=== PATIENT | male | born 1950 | race Caucasian/White ===

== ENCOUNTER 2021-03-22 08:38 | Outpatient (CLI) | payer OTHER, SELFPAY ==
--- NOTE | ~2021-03-22 | XR_ITS ---
EXAMINATION: XR hand RT min 3V EXAM DATE: 03/22/2021 08:54 INDICATION: 1st metacarpal/phalangeal pain, no known recent injury. TECHNIQUE: Right hand frontal, lateral and oblique projections obtained and reviewed. There is no pr ior study for comparison. FINDINGS: Right metacarpal bones are unremarkable. There is mild polyarticular primary osteoarthriti s, including the 1st MCP joint. There are no acute fractures or dislocations identified. There is no subcutaneous gas. The soft tissue is unremarkable. There are no radiopaque foreign bodies. IMPRESSION: Right hand mild polyarticular osteoarthritis. Reviewed, dictated and finalized at location A.
== END 2021-03-22 08:39 | disposition home or self-care (01) ==
LOC: ANHIMG 08:43
PROVIDERS: PCP Internal Medicine; Visit Provider Internal Medicine
DX: M79.89 Other specified soft tissue disorders (principal); M19.041 Primary osteoarthritis, right hand
CPT/HCPCS: 73130

== ENCOUNTER 2022-02-27 13:41 | Outpatient (CLI) | payer MEDICARE, SELFPAY ==
--- NOTE | 2022-02-27 15:08 | ECG_ITS ---
Measurements Intervals [place] Rate: 79 P: 4 UT: 170 QRS: -3 QRSD: 95 T: 24 QT: 363 QTc: 417 Interpretive Statements SINUS RHYTHM NORMAL ELECTROCARDIOGRAM NO PREVIOUS ECG AVAILABLE FOR COMPARISON Electronically Signed On 02-28-2022 11:55:55 CDT by Dinesh Duarte M.D.
[2022-02-27 15:50] LABS: Basophils Percent Auto 0.3 % (0.2-1.2); Eosinophils Absolute Auto 0.1 K/mm3 (0-0.3); Eosinophils Percent Auto 1.2 % (0-4.4); Hematocrit 42.9 % (42.0-52.0); Hemoglobin 14.5 g/dL (14.0-18.0); Immature Granulocyte Absolute 0.03 K/mm3 (0.00-0.031); Immature Granulocyte Percent A 0.3 % (0-0.5); Lymphocytes Absolute Auto 2.33 K/mm3 (0.9-3.2); Lymphocytes Percent Auto 24.9 % (18.3-44.2); Mean Corpuscular HGB Conc 33.8 g/dl (32-36); Mean Corpuscular Hemoglobin 32.2 pg (26-34); Mean Corpuscular Volume 95.1 fl (80-100); Monocytes Percent Auto 11.1 % (2.6-8.5); Neutrophils Absolute Auto 5.8 K/mm3 (1.3-6.7); Neutrophils Percent Auto 62.2 % (45.5-73.1); Platelet Count Result 207 k/mm3 (150-375); Red Blood Count 4.51 M/mm3 (4.6-6.20); White Blood Count 9.3 K/mm3 (4.5-10.0)
[2022-02-27 15:59] LABS: INR 1.1; Prothrombin Time 13.4 Seconds (11.1-14.7)
[2022-02-27 16:00] LABS: Add Urine Microscopic? NO; Appearance Urine Clear (Clear); Bilirubin Urine Negative (Negative); Blood Urine Negative (Negative); Color Urine Yellow (Yellow); Glucose Urine UA Negative (Negative); Ketones Urine Negative (Negative); Leukocyte Esterase Ur Negative LEU/UL (Negative); Nitrate Urine Negative (Negative); Partial Thromboplastin Time 35.8 SECONDS (22.3-36.8); Protein Urine Negative (Negative); Urobilinogen Urine 0.2 mg/dL (<2.0)
[2022-02-27 16:06] LABS: Albumin Level 4.7 g/dL (3.5-5.1); Anion Gap 14 mmol/L (8-16); Blood Urea Nitrogen 18 mg/dL (9-20); Calcium 9.5 mg/dL (8.4-10.2); Carbon Dioxide 24 mmol/L (22-30); Chloride 100 mmol/L (98-107); Estimated Glomerular Filt Rate > 60; Glucose 125 mg/dL (65-110); Potassium 3.8 mmol/L (3.4-5.0); Sodium 138 mmol/L (137-145)
[2022-02-27 16:08] LABS: Hemoglobin A1C 5.7 % (<5.7)
[2022-02-27 17:14] LABS: Urine Cotinine NEGATIVE
== END 2022-02-27 13:42 | disposition home or self-care (01) ==
LOC: ANHSURGERY 13:47
PROVIDERS: PCP Internal Medicine; Visit Provider Orthopaedic Surgery
DX: Z01.818 Encounter for other preprocedural examination (principal); M17.11 Unilateral primary osteoarthritis, right knee
CPT/HCPCS: 80048; 80307; 81003; 82040; 83036; 85025; 85610; 85730; 86850; 86900; 86901; 87081; 93005

== ENCOUNTER 2022-03-12 15:55 | Observation (INO) | payer MEDICARE, SELFPAY ==
[2022-02-27 13:53] VITALS: BMI 27.4
--- NOTE | 2022-02-27 14:29 | PC.NURSE ---
Addendum entered by Kizzy Kim RN 02/27/22 14:40: TAKE HYDRALAZINE MORNING OF SURGERY Original Note: Report to the Outpatient Waiting Room, entrance under the green pavilion located off [facility], at time ___1000____ on date _03/11/22 . OR Time: __1200 . - You and your visitor will be asked to self-screen and do not enter if you have any COVID symptoms. - Only one visitor and NO children visitors are allowed at this time. - The patient visitor is requested to leave or wait in car when not with patient due to restrictions. - A mask is required within the hospital. Patients may have clear liquids (water, carbonated beverages, clear teas, apple juice) until 3 hours prior to surgery with a maximum of 20 ounces. - No food from midnight until time of surgery - Infants may have breast milk until 4 hours before surgery, formula 6 hours prior to surgery. - Children will be allowed to drink immediately following surgery. If applicable, please bring a bottle or sippy cup to assist with drinking. Juice, water, soda, and popsicles are readily available. For infants on formula, please bring formula the day of surgery. Pacifiers are allowed. Take the following medications with a SIP of water the morning of surgery: LORAZEPAM Medications to discontinue per physician IBUPROFEN PER DR DANG Date to take last dose Please no make-up, nail setswana, hairspray, perfume, deodorant, or body powder the day of surgery. No jewelry (including any body piercings) or valuables the day of surgery, leave them at home. Please take a shower or bath the night before, or the morning of, surgery with an antibacterial soap. Wear comfortable, loose fitting clothing. Children are encouraged to wear pajamas. - Jewelry must be removed prior to entering the operating room. Rings and piercings that are not removed may be cut off. - The hospital will not accept responsibility for valuables. - Please leave all valuables, including medications, at home the day of surgery. If you are going home after surgery, a licensed school bus driver/mechanic must drive you home. - NO public transportation without another adult. - We recommend that an adult stay with you for 24 hours following discharge. - We also recommend that you do not drive, make important decision, drink alcoholic beverages, or take any drugs that were not prescribed by your health care provider for at least 24 hours after your discharge time. For Pediatric surgeries, we recommend two adults accompany the child home (only one inside the building at this time). Follow any additional instructions given to you from your surgeon. If you or anyone in your household have experienced Covid symptoms in the past week, please notify your surgeon or the nurse liaison at the phone number below for possible testing. VERBAL AND WRITTEN instructions given to PATIENT AND SPOUSE NUVIAE and asked if any additional questions and then verbalized understanding. Patient advised to call surgeon office or pre surgery nurse liaison [phone] if any additional questions.
[2022-02-27 14:57] VITALS: BP 124/82; PULSE 84; RESP 18; TEMP 37.1; O2SAT 99
--- NOTE | 2022-03-10 13:24 | WPDANESEPPF ---
Anes - Initial Pre Proc Eval Procedure: Operation Date: 03/11/22 12:00 Proposed Procedures p Right Total Knee Arthroplasty - Ronine Cassidy MD Date/Time: 03/10/22 13:24 Surgeon: Ronnie Cassidy MD Pre Op Diagnosis: Rt Knee DJD Patient Data Age: 71 Gender: M Height: 1.85 m Weight: 94.3 kg Last Vital Signs Temp 37.1 C 02/27/22 14:57 Pulse 84 02/27/22 14:57 Resp 18 02/27/22 14:57 BP 124/82 02/27/22 14:57 Pulse Ox 99 02/27/22 14:57 O2 Del Method Room Air 02/27/22 14:57 Allergies Allergy/AdvReac Type Severity Reaction Status Date / Time No Known Allergies Allergy Verified 03/11/22 10:07 Home Medications Medication Instructions Recorded Confirmed Type ibuprofen 200 mg tablet (Advil) 800 mg PO DAILY PRN Pain 02/24/20 03/11/22 History sildenafil 100 mg tablet See Rx Instructions .Route 10/22/21 02/27/22 Rx .COMPLEX #18 tabs omeprazole 40 mg capsule,delayed 40 mg PO DAILY #90 caps 11/22/21 03/11/22 Rx release atorvastatin 20 mg tablet See Rx Instructions .Route 12/20/21 03/11/22 Rx .COMPLEX #90 tabs valsartan 320 1 tablet PO DAILY #90 tabs 12/20/21 03/11/22 Rx mg-hydrochlorothiazide 12.5 mg tablet (Diovan HCT) tamsulosin 0.4 mg capsule See Rx Instructions .Route 01/06/22 03/11/22 Rx .COMPLEX #90 caps hydralazine 50 mg tablet 50 mg PO .COMPLEX #15 tabs 01/20/22 03/11/22 Rx lorazepam 1 mg tablet 1 mg PO BID PRN anxiety #180 tabs 02/25/22 03/11/22 Rx Patient hx anesthesia problems: none Family hx anesthesia problems: none Results Review: All pre-operative results and documents have been reviewed as part of the pre-operative evaluation. [facility] Past Medical History Medical History (Updated 03/10/22 @ 13:26 by Saravanan Bernabe MD) Anxiety BPH with obstruction/lower urinary tract symptoms Chronic pain of both knees Essential hypertension Gastroesophageal reflux disease without esophagitis Hyperlipidemia Impaired glucose tolerance Psoriasis Screening for colon cancer Family History Family History Mother Family history of multiple sclerosis Father Hypertension, Onset Age: 83 Family history of congestive heart failure, Onset Age: 83 Social History Social History Smoking packs per day: 1 Smoking cigarettes per day: 20.0 Years smoked: 15 Smoking pack-years: 15.00 Smoking status: Former smoker Tobacco type: cigarettes Smoking end date: 07/13/75 Additional smoking assessment comments: DENIES ANY FORM OF TOBACCO USE Alcohol intake: current Alcohol use details: social Substance use: never Substance use type: does not use Living arrangements: with family Spiritual care concerns: No Anes - Eval Final PreProcedure Day of Procedure 03/10/22 13:24 Patient weight: overweight Heart: regular rate and rhythm Lungs: clear to auscultation and normal air movement Airway: Mallampati scale class II Neurological: alert and oriented Last oral intake: >/= 8 hours ASA classification: II Emergent: no Anesthetic plan: proceed Anesthesia type and monitoring: general LMA Results Review: All pre-operative results and documents have been reviewed as part of the pre-operative evaluation. Informed Consent: The patient's anesthetic plan and its attendant risks and benefits were discussed with the patient/family/POA. Questions were solicited and answers provided to the satisfaction of the patient/family/POA.
[2022-03-11] VITALS (15 sets, daily range): BP systolic 110–164; BP diastolic 63–99; PULSE 69–104; RESP 14–20; TEMP 36.1–36.6; O2SAT 95–100
[2022-03-11] MEDS: ACETAMINOPHEN 500 MG TABLET 1000 MG PO (10:45)
[2022-03-11] MEDS: LACTATED RINGERS 1,000 ML 30 ML IV CONT ×2 (10:45→14:25)
--- NOTE | 2022-03-11 11:17 | WPDHPUPDATE1 ---
History and Physical Update Update Date/Time: 03/11/22 11:17 History and Physical has been reviewed, including an updated exam of the patient. There are NO changes in the patient's condition. Risks, benefits, and alternatives have been discussed and questions answered. Patient agrees to proceed with procedure.
[2022-03-11] MEDS: TRANEXAMIC ACID 1,000MG/ISO100 1,000 MG/100 ML BAG 200 MG IVPB (11:45)
--- NOTE | 2022-03-11 12:06 | WPDANESPNB ---
Anes - Peripheral Nerve Block Date/Time: 03/11/22 12:06 I have discussed with the patient/family/POA the placement of a peripheral nerve block for post-operative pain management, including associated risks, benefits, complications, and side effects. Alternative methods of post-operative analgesia were detailed. Questions were solicited and answers provided to the satisfaction of the patient/family/POA. Time-Out: A pre-procedural Time-Out was completed immediately before starting the procedure and confirmed: Patient Identification, Site, Procedure, Patient Position and the Availability of Requisite Equipment. Clinical Indications: Acute post-operative pain management requested by the operative surgeon. Nerve Block Insertion Note Anes-nerve block: adductor canal right Patient position: supine Skin prep: chlorhexidine Needle: 22 gauge, stimulating, insulated echogenic needle. Needle length: 80 mm Technique: ultrasound Technique comment: in plane Injectate: bupivacaine 0.5% with epi 5 mcg/ml (30cc) Observations: tolerated well Complications: none Procedure start time:: 1155 Procedure end time:: 1200
[2022-03-11] MEDS: ceFAZolin 2 GM/D5W 50 ML 2 GM/50 ML BAG IVPB ×2 (12:08→20:49)
[2022-03-11] MEDS: GENTAMICIN BONE CEMENT REFOBACIN 1 EACH TOPICAL (13:15)
[2022-03-11] MEDS: TRANEXAMIC ACID 1,000 MG/10 ML AMPUL 1000 MG IV PUSH (13:33)
--- NOTE | 2022-03-11 14:20 | P.OP_ITS ---
Procedure Note - Detailed Date of Procedure 03/11/22 Pre-op Diagnosis Rt Knee DJD Post-op Diagnosis Same Procedure Performed R TKA Surgeon Ronnie Cassidy MD Anesthesia General Description of Procedure THE RIGHT KNEE WAS PREPPED AND DRAPED IN THE STERILE FASHION. THERE WAS A 10 DEGREE FLEXION CONTRACTURE. A MIDLINE SKIN INCISION WAS MADE. A MEDIAL PARAPATELLAR ARTHROTOMY WAS MADE. THE PATELLA WAS EVERTED. THERE WAS TRICOMPARTMENT DJD. AN INTRAMEDULLARY DILLON WAS PLACED IN THE FEMUR. A DISTAL FEMORAL CUT WAS MADE IN 5 DEGREES OF VALGUS REMOVING APPROXIMATELY 9 MM OF BONE FROM THE DISTAL FEMUR. THE FEMUR WAS SIZED TO 67.5. A 67.5 FEMORAL CUTTING BLOCK WAS PLACED IN 3 DEGREES OF EXTERNAL ROTATION AND IN ALIGNMENT WITH RAS'S LINE AND THE TRANSEPICONDYLAR AXIS. ANTERIOR POSTERIOR AND CHAMFER CUTS WERE MADE. THE CUTS WERE EXCELLENT. NEXT AN INTRAMEDULLARY CUTTING GUIDE WAS PLACED IN THE TIBIA. A TRANS TIBIAL CUT WAS MADE ALONG THE LONG AXIS OF THE TIBIA. APPROXIMATELY 10 MM OF BONE WAS REMOVED FROM THE HIGH SIDE OF THE TIBIA. THE TIBIA WAS THEN PLANED TO A SMOOTH SURFACE. POSTERIOR FEMORAL OSTEOPHYTES WERE REMOVED FROM THE FEMORAL CONDYLES. A 79 TIBIAL TRIAL WAS PLACED IN ALIGNMENT WITH THE 1/3 MEDIAL ASPECT OF THE TIBIAL TUBERCLE. THEN A 67.5 FEMORAL TRIAL COMPONENT WAS PLACED. BOTH HAD EXCELLENT FITS. EVENTUALLY A 10 MM CR POLYETHYLENE TRIAL COMPONENT WAS PLACED. THE KNEE WAS TAKEN THROUGH A RANGE OF MOTION. THE KNEE CAME OUT TO FULL EXTENSION. THERE WAS NO ABNORMAL T ILT TO THE PATELLA. THERE WAS GOOD A/P AND VARUS/VALGUS STABILITY. THERE WAS NO EXCESSIVE ROLL BACK WITH FLEXION. THE TRIAL COMPONENTS WERE REMOVED. THEN A 67.5 FEMORAL COMPONENT AND 79 TIBIAL COMPONENT WITH A 10 CR POLYETHYLENE COMPONENT WERE CEMENTED INTO PLACE. ONCE THE CEMENT WAS HARD THE KNEE WAS TAKEN THROUGH A ROM AGAIN AND FOUND TO BE STABLE WITH NO PATELLA TILT NO EXCESSIVE ROLL BACK WITH FLEXION AND GOOD STABILITY WITH COMPLETE AND FULL EXTENSION. THE KNEE WAS IRRIGATED WITH STERILE BETADINE AND WATER FOR ABOUT 3 MINUTES. THE BLEEDERS WERE CAUTERIZED. THE ARTHROTOMY WAS REPAIRED WITH NUMBER 1 VICRYL. THE SUB CUTANEOUS LAYER WITH 2-0 VICRYL AND THE SKIN WITH MIGUEL. THE WOUND WAS WASHED AND A STERILE DRESSING WAS APPLIED. PATIENT WAS EXTUBATED. Estimated Blood Loss -150.0 Pathology None sent Complications No immediate complications Condition Stable Disposition PACU
[2022-03-11] MEDS: fentaNYL CITRATE INJ (*CRX) 100 MCG/2 ML VIAL 25 MCG IV PUSH ×8 (14:28→15:10)
--- NOTE | 2022-03-11 16:01 | ADMGEN ---
This patient, Ranjan Baer, was admitted to 2 Medical Room 248-. Patient/family oriented to hospital policies and general routines including ID bracelet, bed and alarms, visiting hours, pain management, procedures, bathroom and other care routines, personal items, smoking policy, room service/diet, and visiting hours. Information on how to activate the Rapid Response Team has been discussed. Patient/Family are encouraged to report perceived risks to care and to ask questions if they do not understand what they are told or what they should do. Report received from MARCUS Forte
[2022-03-11] MEDS: SENNA/DOCUSATE SODIUM TABLET 2 TAB PO (17:07)
[2022-03-11] MEDS: KETOROLAC 15 MG/ML VIAL (*BKC) IV PUSH (17:07)
[2022-03-11] MEDS: ASPIRIN 325 MG ENTERIC TABLET PO (20:49)
[2022-03-11] MEDS: PANTOPRAZOLE 40 MG TABLET PO (20:49)
[2022-03-11] MEDS: hydrALAZINE HCL 50 MG TABLET PO (20:49)
[2022-03-11] MEDS: LORazepam (*CRX) 1 MG TABLET PO (22:27)
--- NOTE | ~2022-03-12 | XR_ITS ---
EXAMINATION: XR knee RT 2V DATE: 03/11/2022 14:34 INDICATION: Postoperative evaluation following right total knee arthroplasty. TECHNIQUE: Anteroposterior and lateral views of the right knee were obtained. COMPARISON: 02/20/2022 FINDINGS: Right total knee arthroplasty without patellar resurfacing appears well seated and in near anatomic a lignment. No fractures identified. Skin kirsty and expected postoperative subcutaneous, intramedul lyudmila and intra-articular gas. IMPRESSION: 1. Right total knee arthroplasty, negative for postoperative purposes. Reviewed, dictated and finalized at location A.
[2022-03-12] MEDS: KETOROLAC 15 MG/ML VIAL (*BKC) IV PUSH ×4 (00:19→17:22)
[2022-03-12 03:28] VITALS: BP 132/58; PULSE 80; RESP 18; TEMP 36.4; O2SAT 98
[2022-03-12] MEDS: ceFAZolin 2 GM/D5W 50 ML 2 GM/50 ML BAG IVPB ×2 (03:48→11:41)
[2022-03-12 05:39] LABS: Basophils Percent Auto 0.1 % (0.2-1.2); Hematocrit 35.6 % (42.0-52.0); Hemoglobin 11.9 g/dL (14.0-18.0); Immature Granulocyte Absolute 0.06 K/mm3 (0.00-0.031); Immature Granulocyte Percent A 0.4 % (0-0.5); Lymphocytes Absolute Auto 1.55 K/mm3 (0.9-3.2); Lymphocytes Percent Auto 9.7 % (18.3-44.2); Mean Corpuscular HGB Conc 33.4 g/dl (32-36); Mean Corpuscular Hemoglobin 32.1 pg (26-34); Mean Platelet Volume 10.1 fl (7.4-10.4); Monocytes Absolute Auto 2.2 K/mm3 (0.1-0.6); Monocytes Percent Auto 13.5 % (2.6-8.5); Neutrophils Absolute Auto 12.2 K/mm3 (1.3-6.7); Neutrophils Percent Auto 76.3 % (45.5-73.1); Platelet Count Result 189 k/mm3 (150-375); Red Blood Count 3.71 M/mm3 (4.6-6.20); Red Cell Distribution Width 12.8 % (11.5-14.5)
[2022-03-12 05:49] LABS: Anion Gap 7 mmol/L (8-16); Blood Urea Nitrogen 20 mg/dL (9-20); Calcium 7.9 mg/dL (8.4-10.2); Carbon Dioxide 24 mmol/L (22-30); Chloride 102 mmol/L (98-107); Estimated CRCL calculation 70 ml/min; Estimated Glomerular Filt Rate > 60; Glucose 121 mg/dL (65-110); Potassium 3.9 mmol/L (3.4-5.0); Sodium 133 mmol/L (137-145)
--- NOTE | 2022-03-12 07:35 | PM.PNORT ---
Progress Note: A&P Assessment and Plan (1) DJD (degenerative joint disease) of knee: Qualifiers: Osteoarthritis type: primary Laterality: bilateral Qualified Code(s): M17.0 - Bilateral primary osteoarthritis of knee Code(s): M17.10 - Unilateral primary osteoarthritis, unspecified knee Status: Acute Plan POD 1 DOING WELL WITH CONTROLLED PAIN. HE IS DOING WELL WITH PT BUT HE HAS A LITTLE MORE DRAINAGE WITH HEMATOMA THAN I WOULD LIKE AND I THINK HE SHOULD SPEND ANOTHER NIGHT IN ORDER TO OBSERVE THE DRESSING AND PREFORM ANY DRESSING CHANGES UNDER A HOSPITAL SETTING SINCE HE HAS HAD 3 DRESSING CHANGES TODAY. WE WILL REVALUATE HIM IN THE MORNING Subjective Subjective Date/Time Seen: 03/12/22 07:35 POD 1 DOING WELL. NO CALF PAIN. Exam Extrem: Other: VSS AFEBRILE DRESSING DRY NV INTACT NEG HOMANS SIGN CALF SOFT NON TENDER. DRAINING HEMATOMA WITH DRESSING SATURATION. Objective Data Vital Signs Vital Signs: Vital Signs - 24 hr 03/11/22 09:58 03/11/22 14:24 03/11/22 14:40 Temperature 36.3 C L 36.6 C Pulse Rate 88 104 H 83 Respiratory Rate 18 14 20 Blood Pressure 122/70 164/99 H 141/89 H Pulse Oximetry 100 96 98 Oxygen Delivery Room Air Simple Face Mask Nasal Cannula Oxygen Flow Rate 8 2 03/11/22 14:55 03/11/22 15:10 03/11/22 15:25 Temperature Pulse Rate 76 69 76 Respiratory Rate 18 20 20 Blood Pressure 155/83 H 141/89 H 148/80 H Pulse Oximetry 98 97 97 Oxygen Delivery Nasal Cannula Nasal Cannula Nasal Cannula Oxygen Flow Rate 2 2 2 03/11/22 15:35 03/11/22 16:20 03/11/22 16:33 Temperature Pulse Rate 74 Respiratory Rate 18 Blood Pressure 141/83 H Pulse Oximetry 98 100 99 Oxygen Delivery Nasal Cannula Nasal Cannula Room Air Oxygen Flow Rate 2 2 03/11/22 15:40 03/11/22 15:55 03/11/22 16:25 Temperature 36.5 C 36.1 C L 36.3 C L Pulse Rate 73 86 72 Respiratory Rate 16 16 16 Blood Pressure 139/90 139/90 122/74 Pulse Oximetry 100 97 95 Oxygen Delivery Oxygen Flow Rate 03/11/22 17:25 03/11/22 19:05 03/11/22 20:00 Temperature 36.3 C L 36.3 C L Pulse Rate 85 91 Respiratory Rate 16 18 Blood Pressure 125/67 119/76 Pulse Oximetry 99 98 Oxygen Delivery Room Air Oxygen Flow Rate 03/11/22 23:26 03/12/22 03:28 Temperature 36.6 C 36.4 C L Pulse Rate 78 80 Respiratory Rate 18 18 Blood Pressure 110/63 132/58 L Pulse Oximetry 95 98 Oxygen Delivery Oxygen Flow Rate Intake/Output Intake/Output: Intake & Output 03/09/22 03/10/22 03/11/22 03/12/22 23:59 23:59 23:59 23:59 Intake Total 1190 550 Output Total 300 500 Balance 890 50 Meds/Results Medications: Active Medications Generic Name Dose Route Start Last Admin Trade Name Freq PRN Reason Stop Dose Admin Acetaminophen 1,000 mg 03/11/22 15:40 Acetaminophen 500 Mg Tablet PO Q6H PRN Pain Rated 1-3 Aspirin 325 mg 03/11/22 21:00 03/11/22 20:49 Aspirin 325 Mg Enteric Tablet PO 325 mg Q12HR SCOTT Administration Atorvastatin Calcium 20 mg 03/12/22 09:00 Atorvastatin 20 Mg Tablet BY MOUTH DAILY SCOTT Diazepam 5 mg 03/11/22 15:40 Diazepam (*Crx) 5 Mg Tablet PO Q8H PRN Spasms Diphenhydramine HCl 25 mg 03/11/22 15:40 Diphenhydramine Hcl Inj 50 Mg/Ml Vial IV PUSH Q6H PRN Itching Hydralazine HCl 25 mg 03/12/22 12:00 Hydralazine Hcl 25 Mg Tablet PO [facility]ON [facility] Hydralazine HCl 50 mg 03/11/22 21:00 03/11/22 20:49 Hydralazine Hcl 50 Mg Tablet PO 50 mg Q12HR [facility] Administration Hydrochlorothiazide 12.5 mg 03/12/22 09:00 Hydrochlorothiazide 12.5 Mg Capsule PO 04/11/22 08:59 DAILY [facility] Cefazolin Sodium 2 gm in 50 mls @ 100 mls/hr 03/11/22 20:00 03/12/22 04:20 Ancef 2 Gm/D5w 50 Ml IVPB 03/12/22 12:29 Infused Q8H [facility] Infusion Ketorolac Tromethamine 15 mg 03/11/22 18:00 03/12/22 06:13 Ketorolac 15 Mg/Ml Vial (*Bk) IV PUSH 03/12/22 18:01 15 mg Q6HR SCOTT Adminis
[2022-03-12] MEDS: polyethylene glycoL 3350 17 GM POWD.PACK PO (09:05)
[2022-03-12] MEDS: TAMSULOSIN HCL 0.4 MG CAPSULE BY MOUTH (09:06)
[2022-03-12] MEDS: VALSARTAN 160 MG TABLET 320 MG PO (09:06)
[2022-03-12 09:07] VITALS: RESP 16; O2SAT 100
[2022-03-12] MEDS: ATORVASTATIN 20 MG TABLET BY MOUTH (09:07)
[2022-03-12] MEDS: hydrALAZINE HCL 50 MG TABLET PO ×2 (09:07→20:25)
[2022-03-12] MEDS: hydroCHLOROthiazide 12.5 MG CAPSULE PO (09:07)
[2022-03-12] MEDS: ASPIRIN 325 MG ENTERIC TABLET PO ×2 (09:07→20:25)
[2022-03-12] MEDS: SENNA/DOCUSATE SODIUM TABLET 2 TAB PO (09:07)
[2022-03-12 10:42] VITALS: BP 120/69; PULSE 91; RESP 16; TEMP 36.4; O2SAT 100
[2022-03-12] MEDS: hydrALAZINE HCL 25 MG TABLET PO (11:41)
[2022-03-12 13:29] VITALS: BP 138/69; PULSE 90; RESP 16; TEMP 36.2; O2SAT 99
[2022-03-12] MEDS: oxyCODONE/ACETAMINOPHEN (*CRX) 5-325 MG TABLET 1 TABLET PO ×2 (15:29→21:07)
[2022-03-12 18:03] VITALS: BP 128/79; PULSE 84; RESP 16; TEMP 36.4; O2SAT 99
[2022-03-12 19:46] VITALS: BP 132/71; PULSE 89; RESP 20; TEMP 36.9; O2SAT 97
[2022-03-12] MEDS: PANTOPRAZOLE 40 MG TABLET PO (20:26)
[2022-03-12] MEDS: LORazepam (*CRX) 1 MG TABLET PO (21:48)
[2022-03-13 00:53] VITALS: BP 127/68; PULSE 90; RESP 16; TEMP 36.8; O2SAT 97
[2022-03-13] MEDS: oxyCODONE/ACETAMINOPHEN (*CRX) 5-325 MG TABLET 1 TABLET PO (01:09)
--- NOTE | 2022-03-13 04:22 | PC.NURSE ---
Pt had a couple complaints of pain overnight. Pt has pleasant demeanor. Pt was treated with PO pain meds. Pt has been resting in bed all night. Pt had bleeding at surgery site earlier in the day, but site was fine for evening shift. Pt stable. Will continue to monitor.
[2022-03-13 04:47] VITALS: BP 121/67; PULSE 89; RESP 16; TEMP 37.1; O2SAT 100
[2022-03-13] MEDS: oxyCODONE/ACETAMINOPHEN (*CRX) 5-325 MG TABLET 2 TABLET PO ×2 (05:15→10:34)
[2022-03-13] MEDS: TAMSULOSIN HCL 0.4 MG CAPSULE BY MOUTH (08:45)
[2022-03-13] MEDS: ATORVASTATIN 20 MG TABLET BY MOUTH (08:45)
[2022-03-13] MEDS: ASPIRIN 325 MG ENTERIC TABLET PO (08:45)
[2022-03-13] MEDS: hydrALAZINE HCL 50 MG TABLET PO (08:45)
[2022-03-13] MEDS: hydroCHLOROthiazide 12.5 MG CAPSULE PO (08:46)
[2022-03-13] MEDS: VALSARTAN 160 MG TABLET 320 MG PO (08:47)
[2022-03-13 08:48] VITALS: RESP 16; O2SAT 100
--- NOTE | 2022-03-13 09:44 | PM.PNORT ---
Progress Note: A&P Assessment and Plan (1) S/P total knee arthroplasty: Code(s): Z96.659 - Presence of unspecified artificial knee joint Status: Acute Assessment and Plan: POD #2 : RIGHT TKA Continue PT/OT. WBAT. Walker. HIGH FALL RISK. Continue pain control. Ice knee. Protect skin. DVT prophylaxis with Aspirin. SCDs. Incentive Spirometry Use reviewed. Monitor Dressing. Drainage slowed today. Change prior to discharge. Send with one additional dressing. Bowel Regimen. Reviewed home OTC stool softeners. Dispo: Home with Home Health today Subjective Subjective Date/Time Seen: 03/13/22 09:44 Post Op day: 2 Principal diagnosis: RIGHT KNEE DJD Interval history: POD #1: Right TKA Patient doing well. Pain well controlled. Hopeful for discharge home today. Review of Systems Review of Systems: All systems reviewed & are unremarkable except as noted in HPI and below Constitutional: Constitutional: Denies fever(s) and Denies headache(s) ENT: Denies headache(s) Cardiovascular: Cardiovascular: Denies chest pain, Denies diaphoresis, Denies palpitations and Denies dyspnea Respiratory: Respiratory: Denies dyspnea Gastrointestinal: Gastrointestinal: Denies abdominal pain, Denies constipation, Denies nausea and Denies vomiting Genitourinary: Genitourinary: Denies dysuria and Reports nocturia Musculoskeletal: Musculoskeletal: Reports arthralgias (Right Knee ) and Reports joint swelling (Right Knee ) Neurologic: Denies headache(s) Endocrine: Endocrine: Denies palpitations Exam Const: General: comfortable and no acute distress Resp: Effort & Inspection: normal respiratory effort Cardio: Rate: regular rate Rhythm: regular rhythm GI: GI Palp: Yes Soft to palpation, No Tenderness to palpation present (GI) and No Guarding due to palpation present (GI) Skin: Wounds: wounds noted Other: Incision c/d/i. No surrounding redness/warmth. No hematoma. Mild ecchymosis. No wound dehiscence Neuro: Cognition (Neuro): normal cognition Other: NV intact aside from block. Moves toes. Sensation intact to light touch. +ankle dorsiflexion/plantarflexion. Extrem: Right lower extremity: normal to inspection, knee Details: tenderness (diffuse, mild ) Location: of the patella, swelling (diffuse, consistent with surgical intervention ), abnormal ROM Details: pain with active ROM during, pain with passive ROM during and with range as follows (limited due to recent surgical intervention ); able to extend lower leg actively and ecchymosis (mild ), lower leg (Negative Charito's Sign ) Details: normal to inspection; no erythema and no tenderness, ankle (+ankle dorsiflexion/plantarflexion ) Details: normal to inspection, no edema and normal ROM; no tenderness, no swelling and no ecchymosis and foot Details: normal capillary refill, normal to inspection, vascular exam Details: dorsalis pedis pulse present and motor-sensory exam Details: light-touch normal; no tenderness Left lower extremity: normal to inspection Psych: Mental Status: mental status grossly normal Objective Data Vital Signs Vital Signs: Vital Signs - 24 hr 03/12/22 10:42 03/12/22 13:29 03/12/22 18:03 Temperature 36.4 C 36.2 C L 36.4 C Pulse Rate 91 90 84 Respiratory Rate 16 16 16 Blood Pressure 120/69 138/69 128/79 Pulse Oximetry 100 99 99 Oxygen Delivery 03/12/22 19:46 03/12/22 20:29 03/13/22 00:53 Temperature 36.9 C 36.8 C Pulse Rate 89 90 Respiratory Rate 20 16 Blood Pressure 132/71 127/68 Pulse Oximetry 97 97 Oxygen Delivery Room Air 03/13/22 04:47 03/13/22 08:48 Temperature 37.1 C Pulse Rate 89 Respiratory Rate 16 16 Blood Pressure 121/67 Pulse Oximetry 100 100 Oxygen Delivery Room Air Intake/Output Intake/Output: Intake & Output 03/10/22 03/11/22 03/12/22 03/13/22 23:59 23:59 23:59 23:59 Intake Total 1190 2410 730 Output Total 300 1550 700 Balance 890 860 30 Meds/Results Medications: Acti
--- NOTE | 2022-03-13 10:09 | PM.DS ---
DS: Admitting Diagnosis Discharge Date 03/13/22 Admitting Diagnosis RIGHT KNEE DJD DS: Discharge Diagnosis Discharge Diagnosis (1) S/P total knee arthroplasty: Code(s): Z96.659 - Presence of unspecified artificial knee joint Status: Acute Assessment and Plan: POD #2 : RIGHT TKA Continue PT/OT. WBAT. Walker. HIGH FALL RISK. Continue pain control. Ice knee. Protect skin. DVT prophylaxis with Aspirin. SCDs. Incentive Spirometry Use reviewed. Monitor Dressing. Drainage slowed today. Change prior to discharge. Send with one additional dressing. Bowel Regimen. Reviewed home OTC stool softeners. Dispo: Home with Home Health today DS: Summary Hospital Course Reason for hospitalization: Right total knee arthroplasty Hospital Course: 71-year-old male admitted status post right total knee arthroplasty for postoperative medical management, pain control and mobilization with physical and occupational therapy. Patient progressed very well on postop day 1. He did have difficulty with drainage of his dressing. On postop day 2, dressing had very little to no drainage. New dressing changed. Incision remains well approximated, kirsty intact. No signs of dehiscence. Pain well controlled. Patient has been cleared by Physical and Occupational therapy to be discharged home with home health this time. He will follow up in the outpatient orthopedic clinic as scheduled. Status at Discharge Functional status at discharge: uses cane/walker Overall status at discharge: patient is progressing back to baseline Time Spent with Patient Time attestation: Total time spent providing and/or coordinating discharge services: Exam Const: General: comfortable and no acute distress Resp: Effort & Inspection: normal respiratory effort Cardio: Rate: regular rate Rhythm: regular rhythm Skin: Wounds: wounds noted Other: Incision c/d/i. No surrounding redness/warmth. No hematoma. Mild ecchymosis. No wound dehiscence Neuro: Cognition (Neuro): normal cognition Other: NV intact aside from block. Moves toes. Sensation intact to light touch. +ankle dorsiflexion/plantarflexion. Extrem: Right lower extremity: normal to inspection, knee Details: tenderness (diffuse, mild ) Location: of the patella, swelling (diffuse, consistent with surgical intervention ), abnormal ROM Details: pain with active ROM during, pain with passive ROM during and with range as follows (limited due to recent surgical intervention ); able to extend lower leg actively and ecchymosis (mild ), lower leg (Negative Charito's Sign ) Details: normal to inspection; no erythema and no tenderness, ankle (+ankle dorsiflexion/plantarflexion ) Details: normal to inspection, no edema and normal ROM; no tenderness, no swelling and no ecchymosis and foot Details: normal capillary refill, normal to inspection, vascular exam Details: dorsalis pedis pulse present and motor-sensory exam Details: light-touch normal; no tenderness Left lower extremity: normal to inspection Psych: Mental Status: mental status grossly normal Discharge Plan Discharge Attending physician on discharge: Ronnie Cassidy Discharging Clinician: Gerri Felton Patient Disposition: Home Health Service Activity: may shower, no driving and follow weight bearing status Diet: as tolerated Wound Care Instructions: follow printed instructions Discharge Instructions: Post Op Total Knee Replacement Instructions Dr. Ronnie Cassidy [phone] Your dressing will be changed prior to your discharge. You will be sent home with one additional dressing to be changed on post op day 7 by the home health RN. Your kirsty will be removed on the 14th day after surgery and steri-strips will be placed. Please practice good hand hygiene and do not touch your incision in order to prevent infection. You may shower with your dressing but do not submerge in a bath tub. Do not drive or operate machinery until you ar
== END 2022-03-13 10:40 | disposition home health service (06) ==
LOC: ANHSURGERY 17:59 → ANH2MED 17:59
PROVIDERS: Admitting Provider Orthopaedic Surgery; PCP Internal Medicine; Visit Provider Orthopaedic Surgery
PROC: (CPT 27447; principal; 2022-03-11 12:00)
DX: M17.11 Unilateral primary osteoarthritis, right knee (principal); E78.5 Hyperlipidemia, unspecified
CPT/HCPCS: 27447; 36415; 73560; 80048; 80307; 81003; 82040; 83036; 85025; 85610; 85730; 86850; 86900; 86901; 87081; 93005; 97110; 97116; 97161; 97165; 97530; 97535; A9270; C1713; C1776; G0378; J0171; J0690; J1100; J1170; J1885; J2250; J2270; J2405; J2704; J2795; J3010; J7120

== ENCOUNTER 2022-03-15 20:37 | Emergency (ER) | payer MEDICARE, SELFPAY ==
--- NOTE | ~2022-03-15 | XR_ITS ---
EXAMINATION: XR chest 2V DATE: 03/15/2022 22:38 INDICATION: Fever. TECHNIQUE: Frontal and lateral views of the chest were obtained. COMPARISON: None. FINDINGS: The chest demonstrates clear lungs without pneumonia, pleural effusion, or pneumothorax. Th e heart size is normal. IMPRESSION: 1. No acute cardiopulmonary disease. Reviewed, dictated and finalized at location A.
[2022-03-15 21:14] VITALS: BP 128/84; PULSE 107; RESP 18; TEMP 37.4; O2SAT 98
[2022-03-15 22:14] VITALS: BP 119/74; PULSE 96; RESP 16; TEMP 37; O2SAT 98
[2022-03-15 22:58] LABS: Basophils Percent Auto 0.2 % (0.2-1.2); Eosinophils Percent Auto 0.3 % (0-4.4); Hematocrit 33.3 % (42.0-52.0); Hemoglobin 11.2 g/dL (14.0-18.0); Immature Granulocyte Absolute 0.04 K/mm3 (0.00-0.031); Immature Granulocyte Percent A 0.4 % (0-0.5); Lymphocytes Absolute Auto 1.99 K/mm3 (0.9-3.2); Mean Corpuscular HGB Conc 33.6 g/dl (32-36); Mean Corpuscular Hemoglobin 31.5 pg (26-34); Mean Corpuscular Volume 93.8 fl (80-100); Mean Platelet Volume 9.6 fl (7.4-10.4); Monocytes Absolute Auto 1.8 K/mm3 (0.1-0.6); Neutrophils Absolute Auto 7.2 K/mm3 (1.3-6.7); Neutrophils Percent Auto 65.1 % (45.5-73.1); Platelet Count Result 243 k/mm3 (150-375); Red Blood Count 3.55 M/mm3 (4.6-6.20); Red Cell Distribution Width 12.2 % (11.5-14.5); White Blood Count 11.1 K/mm3 (4.5-10.0)
[2022-03-15 23:06] LABS: Lactic Acid Reflex 1.2 mmol/L (0.7-2.0)
[2022-03-15 23:07] LABS: Anion Gap 15 mmol/L (8-16); Blood Urea Nitrogen 21 mg/dL (9-20); Calcium 8.2 mg/dL (8.4-10.2); Carbon Dioxide 25 mmol/L (22-30); Chloride 97 mmol/L (98-107); Estimated CRCL calculation 54 ml/min; Estimated Glomerular Filt Rate 55; Glucose 131 mg/dL (65-110); Potassium 3.6 mmol/L (3.4-5.0); Sodium 137 mmol/L (137-145)
[2022-03-15 23:11] LABS: Appearance Urine Clear (Clear); Bilirubin Urine Negative (Negative); Blood Urine Negative (Negative); Color Urine Yellow (Yellow); Glucose Urine UA Negative (Negative); Ketones Urine Negative (Negative); Leukocyte Esterase Ur Negative LEU/UL (Negative); Nitrate Urine Negative (Negative); Protein Urine Negative (Negative); Urobilinogen Urine 0.2 mg/dL (<2.0); pH Urine 5.5 (5.0-9.0)
[2022-03-15 23:15] LABS: Add Urine Microscopic? NO; RBC Urine 0-2 /hpf (0-2); WBC Urine 0-3 /hpf
--- NOTE | 2022-03-15 23:34 | ED.FEVER ---
HPI - Fever General Chief Complaint: Fever Stated Complaint: fever after surgery Time Seen by Provider: 03/15/22 22:15 History of Present Illness HPI Narrative: Patient is a 71-year-old male who presents ER with fever. Reports his fever was 102.0 ?F at home prior to arrival. Currently afebrile. His only symptoms at home or chills. Recently underwent right total knee replacement. Reports he is been able to ambulate today. No increase in pain. Slight redness of the knee. No respiratory/GI/urinary symptoms. Related Data Home Medications Medication Instructions Recorded Confirmed ibuprofen 200 mg tablet (Advil) 800 mg PO DAILY PRN Pain 02/24/20 03/11/22 Allergies Allergy/AdvReac Type Severity Reaction Status Date / Time No Known Allergies Allergy Verified 03/11/22 16:04 Review of Systems Review of Systems: All systems reviewed & are unremarkable except as noted in HPI and below Constitutional: Constitutional: Reports chills, Denies fatigue and Reports fever(s) ENT: Denies nasal congestion and Denies sore throat Cardiovascular: Cardiovascular: Denies chest pain and Denies radiating jaw, neck or arm pain Respiratory: Respiratory: Denies cough and Denies dyspnea Gastrointestinal: Gastrointestinal: Denies abdominal pain, Denies diarrhea, Denies nausea and Denies vomiting Genitourinary: Genitourinary: Denies dysuria and Denies urinary frequency Musculoskeletal: Musculoskeletal: Reports arthralgias (post-op), Reports joint swelling (post-op) and Denies muscle cramps PMFSH Past Medical History Medical History (Updated 03/16/22 @ 00:23 by Ruben Choi MD) Anxiety BPH with obstruction/lower urinary tract symptoms Chronic pain of both knees Essential hypertension Gastroesophageal reflux disease without esophagitis Hyperlipidemia Impaired glucose tolerance Psoriasis Screening for colon cancer Surgical History Surgical History (Updated 03/13/22 @ 08:26 by ROWENA Serna) S/P total knee arthroplasty Family History Family History Mother Family history of multiple sclerosis Father Hypertension, Onset Age: 83 Family history of congestive heart failure, Onset Age: 83 Social History Social History Smoking packs per day: 1 Smoking cigarettes per day: 20.0 Years smoked: 15 Smoking pack-years: 15.00 Smoking status: Former smoker Tobacco type: cigarettes Smoking end date: 07/13/75 Additional smoking assessment comments: DENIES ANY FORM OF TOBACCO USE Alcohol intake: never Alcohol use details: social Substance use: never Substance use type: does not use Spiritual care concerns: No Exam Narrative: GENERAL: Well-appearing, well-nourished, and in no acute distress. HEAD: Normocephalic, atraumatic. EYES: PERRL and EOMI. CHEST: Clear to auscultation. No respiratory distress. HEART: Regular rate and rhythm. Normal peripheral pulses. ABDOMEN: Soft, nontender, nondistended. EXTREMITIES: RLE with erythema and mild warmth at the knee, no tenderness or induration. Effusion at the knee with 2+ edema in RLE. Contusion noted posterior thigh of the right lower extremity from tourniquet during surgery. Additional bruising around the ankle and popliteal fossa. Normal LLE. SKIN: Warm, dry, no rash. NEURO: Alert and oriented x3. PSYCH: Normal mood and affect. Course MEDIA PRODUCER/PA Physician Supervision Discussed labs and evaluation of patient with Dr. Karimi who is on-call for Dr. Cassidy. Does not recommend antibiotics at this time. Discussed this with the patient and his . Recommend to keep an eye on the knee if it is becoming more red or warm or painful and they should contact the on-call surgeon or return to the ER. They verbalized understanding of this. reports was up and ambulating much more today. Patient has follow-up s
[2022-03-16 00:34] VITALS: BP 154/69; PULSE 92; RESP 18; O2SAT 100
== END 2022-03-16 00:34 | disposition home or self-care (01) ==
PROVIDERS: Emergency Provider Emergency Medicine; PCP Internal Medicine
DX: R50.82 Postprocedural fever (principal); Z96.651 Presence of right artificial knee joint; Z87.891 Personal history of nicotine dependence; I10 Essential (primary) hypertension; K21.9 Gastro-esophageal reflux disease without esophagitis; R73.01 Impaired fasting glucose; E78.5 Hyperlipidemia, unspecified; N40.1 Benign prostatic hyperplasia with lower urinary tract symptoms
CPT/HCPCS: 36415; 71046; 80048; 81003; 83605; 85025; 99283

== ENCOUNTER 2022-04-17 10:55 | Outpatient (CLI) | payer MEDICARE, SELFPAY ==
[2022-04-17 11:39] LABS: Appearance Urine Clear (Clear); Bilirubin Urine Negative (Negative); Blood Urine Negative (Negative); Color Urine Yellow (Yellow); Glucose Urine UA Negative (Negative); Ketones Urine Negative (Negative); Leukocyte Esterase Ur Negative LEU/UL (Negative); Nitrate Urine Negative (Negative); Protein Urine Negative (Negative); Urobilinogen Urine 0.2 mg/dL (<2.0); pH Urine 6.5 (5.0-9.0)
[2022-04-17 11:53] LABS: Add Urine Microscopic? NO
== END 2022-04-17 10:56 | disposition home or self-care (01) ==
LOC: ANHSURGERY 11:05
PROVIDERS: PCP Internal Medicine; Visit Provider Orthopaedic Surgery
DX: Z01.818 Encounter for other preprocedural examination (principal); M17.12 Unilateral primary osteoarthritis, left knee
CPT/HCPCS: 36415; 81003; 86850; 86900; 86901; 87081

== ENCOUNTER 2022-04-22 00:16 | Day surgery (SDC) | payer MEDICARE, SELFPAY ==
[2022-04-14 13:01] VITALS: BMI 26.9
--- NOTE | 2022-04-14 13:25 | PC.NURSE ---
Report to the Outpatient Waiting Room, entrance under the green pavilion located off [facility], at time __10:00AM on date __04/22/22 . OR Time: __12:00PM . Time changes happen often and if your time is changed the preop area will call you the afternoon before. - You and your visitor will be asked to self-screen and do not enter if you have any COVID symptoms. - Only one visitor and NO children visitors are allowed at this time. - The patient visitor is requested to leave or wait in car when not with patient due to restrictions. - A mask is required within the hospital. Patients may have clear liquids (water, carbonated beverages, clear teas, apple juice) until 3 hours prior to surgery with a maximum of 20 ounces. - No food from midnight until time of surgery Take the following medications with a SIP of water the morning of surgery: __HYDRALAZINE, LORAZEPAM NEEDED, OXYCODONE NEEDED Medications to discontinue per physician ___NONE Date to take last dose Please no make-up, nail mozambican, hairspray, perfume, deodorant, or body powder the day of surgery. No jewelry (including any body piercings) or valuables the day of surgery, leave them at home. Please take a shower or bath the night before, or the morning of, surgery with an antibacterial soap. Wear comfortable, loose fitting clothing. Children are encouraged to wear pajamas. - Jewelry must be removed prior to entering the operating room. Rings and piercings that are not removed may be cut off. - The hospital will not accept responsibility for valuables. - Please leave all valuables, including medications, at home the day of surgery. If you are going home after surgery, a licensed racing driver must drive you home. - NO public transportation without another adult. - We recommend that an adult stay with you for 24 hours following discharge. - We also recommend that you do not drive, make important decision, drink alcoholic beverages, or take any drugs that were not prescribed by your health care provider for at least 24 hours after your discharge time. Follow any additional instructions given to you from your surgeon. If you or anyone in your household have experienced Covid symptoms in the past week, please notify your surgeon or the nurse liaison at the phone number below for possible testing. Telephone instructions given to __PATIENT and asked if any additional questions and then verbalized understanding. Patient advised to call surgeon office or pre surgery nurse liaison [phone] if any additional questions.
[2022-04-22] VITALS (14 sets, daily range): BP systolic 113–150; BP diastolic 59–97; PULSE 72–100; RESP 14–22; TEMP 36–36.9; O2SAT 96–100; BMI 27.2
--- NOTE | ~2022-04-22 | XR_ITS ---
EXAM: XR knee LT 2V DATE: 04/22/2022 15:57 HISTORY: LT TOTAL KNEE . COMPARISON: 02/20/2022. FINDINGS: Skin kirsty over the midline. Interval total knee arthroplasty. No unexpected radiopaque f oreign body. Normal mineralization. No fracture or dislocation. No lytic or blastic lesion. Joint spa candido are maintained. No erosion or periosteal change. Subcutaneous and joint space gas. IMPRESSION: Expected postsurgical changes, with no radiographic evidence of procedure or hardware rel ated complication. Reviewed, dictated and finalized at location K. IMPRESSION: Expected postsurgical changes, with no radiographic evidence of pro cedure or hardware related complication.
[2022-04-22] MEDS: ACETAMINOPHEN 500 MG TABLET 1000 MG PO (10:55)
--- NOTE | 2022-04-22 11:00 | SUR.PREOP ---
1100- Notified patient Ranjan and spouse Christal that procedure start time may be delayed. Patient and spouse verbalized understanding.
--- NOTE | 2022-04-22 11:04 | WPDANESEPPF ---
Anes - Initial Pre Proc Eval Procedure: Operation Date: 04/22/22 12:00 Proposed Procedures p Left Total Knee Arthroplasty - Ronnie Cassidy MD Date/Time: 04/22/22 11:04 Surgeon: Ronnie Cassidy MD Pre Op Diagnosis: left knee DJD Patient Data Age: 71 Gender: M Height: 1.83 m Weight: 91.1 kg Last Vital Signs Temp 36.9 C 04/22/22 09:55 Pulse 93 04/22/22 09:55 Resp 16 04/22/22 09:55 BP 113/60 04/22/22 09:55 Pulse Ox 100 04/22/22 09:55 O2 Del Method Room Air 04/22/22 09:55 Allergies Allergy/AdvReac Type Severity Reaction Status Date / Time No Known Allergies Allergy Verified 04/22/22 10:32 Home Medications Medication Instructions Recorded Confirmed Type sildenafil 100 mg tablet See Rx Instructions .Route 10/22/21 04/14/22 Rx .COMPLEX #18 tabs omeprazole 40 mg capsule,delayed 40 mg PO DAILY #90 caps 11/22/21 04/14/22 Rx release atorvastatin 20 mg tablet See Rx Instructions .Route 12/20/21 04/14/22 Rx .COMPLEX #90 tabs tamsulosin 0.4 mg capsule See Rx Instructions .Route 01/06/22 04/14/22 Rx .COMPLEX #90 caps hydralazine 50 mg tablet 50 mg PO .COMPLEX #15 tabs 01/20/22 04/22/22 Rx lorazepam 1 mg tablet 1 mg PO BID PRN anxiety #180 tabs 02/25/22 04/22/22 Rx oxycodone-acetaminophen 5 mg-325 1 tablet PO Q4-6H PRN pain #50 tabs 03/25/22 04/14/22 Rx mg tablet chlorhexidine gluconate 4 % 1 applic topical ONCE #237 mL 04/16/22 Rx topical liquid (Hibiclens) valsartan 320 1 tablet PO DAILY #60 tabs 04/22/22 Rx mg-hydrochlorothiazide 12.5 mg tablet (Diovan HCT) Patient hx anesthesia problems: none Family hx anesthesia problems: none Results Review: All pre-operative results and documents have been reviewed as part of the pre-operative evaluation. [facility] Past Medical History Medical History Anxiety BPH with obstruction/lower urinary tract symptoms Chronic pain of both knees Essential hypertension Gastroesophageal reflux disease without esophagitis Hyperlipidemia Impaired glucose tolerance Psoriasis Screening for colon cancer Surgical History Surgical History S/P total knee arthroplasty RIGHT 03/11/2022 LEFT 04/22/2022 Family History Family History Mother Family history of multiple sclerosis Father Hypertension, Onset Age: 83 Family history of congestive heart failure, Onset Age: 83 Social History Social History Smoking packs per day: 1 Smoking cigarettes per day: 20.0 Years smoked: 20 Smoking pack-years: 20.00 Smoking status: Former smoker Tobacco type: cigarettes Smoking end date: 01/11/80 Additional smoking assessment comments: DENIES ANY FORM OF TOBACCO USE Alcohol intake: current Alcohol use details: social Substance use: never Substance use type: does not use Living arrangements: with family Additional living arrangements comments: Spiritual care concerns: No Anes - Eval Final PreProcedure Day of Procedure 04/22/22 11:04 Patient weight: overweight Heart: regular rate and rhythm Lungs: clear to auscultation Airway: Mallampati scale class II Neurological: alert and oriented Last oral intake: >/= 8 hours ASA classification: III Emergent: no Anesthetic plan: proceed Anesthesia type and monitoring: general LMA and standard monitoring Results Review: All pre-operative results and documents have been reviewed as part of the pre-operative evaluation. Informed Consent: The patient's anesthetic plan and its attendant risks and benefits were discussed with the patient/family/POA. Questions were solicited and answers provided to the satisfaction of the patient/family/POA.
[2022-04-22] MEDS: LACTATED RINGERS 1,000 ML 30 ML IV CONT ×2 (11:05→15:42)
[2022-04-22] MEDS: TRANEXAMIC ACID 1,000MG/ISO100 1,000 MG/100 ML BAG 200 MG IVPB (11:19)
--- NOTE | 2022-04-22 11:34 | P.OP_ITS ---
Procedure Note - Detailed Date of Procedure 04/22/22 Pre-op Diagnosis left knee DJD, right knee adhesive capsulitis Post-op Diagnosis Same Procedure Performed LEFT TKA, MANIPULATION UNDER ANESTHESIA AND INJECTION RIGHT KNEE Surgeon Ronnie Cassidy MD Anesthesia General Description of Procedure THE LEFT KNEE WAS PREPPED AND DRAPED IN THE STERILE FASHION. THERE WAS A 20 DEGREE FLEXION CONTRACTURE. A MIDLINE SKIN INCISION WAS MADE. A MEDIAL PARAPATELLAR ARTHROTOMY WAS MADE. THE PATELLA WAS EVERTED. THERE WAS TRICOMPARTMENT DJD. THERE WAS MINIMAL PATELLA DJD. AN INTRAMEDULLARY DILLON WAS PLACED IN THE FEMUR. A DISTAL FEMORAL CUT WAS MADE IN 5 DEGREES OF VALGUS REMOVING APPROXIMATELY 11 MM OF BONE FROM THE DISTAL FEMUR. THE FEMUR WAS SIZED TO 67.5. A 67.5 FEMORAL CUTTING BLOCK WAS PLACED IN 3 DEGREES OF EXTERNAL ROTATION AND IN ALIGNMENT WITH RAS'S LINE AND THE TRANSEPICONDYLAR AXIS. ANTERIOR POSTERIOR AND CHAMFER CUTS WERE MADE. THE CUTS WERE EXCELLENT. NEXT AN INTRAMEDULLARY CUTTING GUIDE WAS PLACED IN THE TIBIA. A TRANS TIBIAL CUT WAS MADE ALONG THE LONG AXIS OF THE TIBIA. APPROXIMATELY 10 MM OF BONE WAS REMOVED FROM THE HIGH SIDE OF THE TIBIA. THE TIBIA WAS THEN PLANED TO A SMOOTH SURFACE. POSTERIOR FEMORAL OSTEOPHYTES WERE REMOVED FROM THE FEMORAL CONDYLES. A 79 TIBIAL TRIAL WAS PLACED IN ALIGNMENT WITH THE 1/3 MEDIAL ASPECT OF THE TIBIAL TUBERCLE. THEN A 67.5 FEMORAL TRIAL COMPONENT WAS PLACED. BOTH HAD EXCELLENT FITS. EVENTUALLY A 10 MM CR POLYETHYLENE TRIAL COMPONENT WAS PLACED. THE KNEE WAS TAKEN THROUGH A RANGE OF MOTION. THE KNEE CAME OUT TO FULL EXTENSION. THERE WAS NO ABNORMAL TILT TO THE PATELLA. THERE WAS GOOD A/P AND VARUS/VALGUS STABILITY. THERE WAS NO EXCESSIVE ROLL BACK WITH FLEXION. THE TRIAL COMPONENTS WERE REMOVED. THEN A 67.5 FEMORAL COMPONENT AND 79 TIBIAL COMPONENT WITH A 10 CR POLYETHYLENE COMPONENT WERE CEMENTED INTO PLACE. ONCE THE CEMENT WAS HARD THE KNEE WAS TAKEN THROUGH A ROM AGAIN AND FOUND TO BE STABLE WITH NO PATELLA TILT NO EXCESSIVE ROLL BACK WITH FLEXION AND GOOD STABILITY WITH COMPLETE AND FULL EXTENSION. THE KNEE WAS IRRIGATED WITH STERILE BETADINE AND WATER FOR ABOUT 3 MINUTES. THE BLEEDERS WERE CAUTERIZED. THE ARTHROTOMY WAS REPAIRED WITH NUMBER 1 VICRYL. THE SUB CUTANEOUS LAYER WITH 2-0 VICRYL AND THE SKIN WITH MIGUEL. THE WOUND WAS WASHED AND A STERILE DRESSING WAS APPLIED. NEXT THE PATIENT WAS CHEMICALLY PARALYZED AND THE RIGHT KNEE WAS MANIPULATED IN BOTH FLEXION AND EXTENSION. AUDIBLE ADHESIOLYSIS WAS OBSERVED. 0 TO 125 DEG OF MOTION WAS OBTAINED. NEXT THE RIGHT KNEE WAS PREPPED STERILE AND 2 CC DEPO MEDROL 80 MG AND 5 CC OF MARCAINE 0.5% WERE INJECTED IN TO THE KNEE JOINT. ONCE THE PA RALYSIS SUBSIDED AND THE PATIENT WAS STABLE HE WAS EXTUBATED AND SENT TO RECOVERY ROOM IN STABLE CONDITION. Estimated Blood Loss -150.0 Pathology None sent Complications No immediate complications Condition Stable Disposition PACU
--- NOTE | 2022-04-22 11:34 | WPDHPUPDATE1 ---
History and Physical Update Update Date/Time: 04/22/22 11:34 History and Physical has been reviewed, including an updated exam of the patient. There are NO changes in the patient's condition. Risks, benefits, and alternatives have been discussed and questions answered. Patient agrees to proceed with procedure.
--- NOTE | 2022-04-22 12:01 | WPDANESPNB ---
Anes - Peripheral Nerve Block Date/Time: 04/22/22 12:01 I have discussed with the patient/family/POA the placement of a peripheral nerve block for post-operative pain management, including associated risks, benefits, complications, and side effects. Alternative methods of post-operative analgesia were detailed. Questions were solicited and answers provided to the satisfaction of the patient/family/POA. Time-Out: A pre-procedural Time-Out was completed immediately before starting the procedure and confirmed: Patient Identification, Site, Procedure, Patient Position and the Availability of Requisite Equipment. Clinical Indications: Acute post-operative pain management requested by the operative surgeon. Nerve Block Insertion Note Anes-nerve block: femoral left Patient position: supine Skin prep: chlorhexidine Needle: 22 gauge, stimulating, insulated echogenic needle. Needle length: 50 mm Technique: nerve stimulation lost at (mA) (0.3) Injectate: bupivacaine 0.5% with epi 5 mcg/ml (no epi 25cc) Complications: none Procedure start time:: 1155 Procedure end time:: 1200
[2022-04-22] MEDS: ceFAZolin 2 GM/D5W 50 ML 2 GM/50 ML BAG IVPB ×2 (12:34→18:42)
[2022-04-22] MEDS: BUPIVACAINE HCL 0.5% PF 30 ML VIAL 10 ML INFILTRATE (15:33)
[2022-04-22] MEDS: methylPREDNISolone ACETATE 80 MG/ML VIAL 160 MG IM (15:34)
[2022-04-22] MEDS: fentaNYL CITRATE INJ (*CRX) 100 MCG/2 ML VIAL 25 MCG IV PUSH ×8 (15:59→17:10)
[2022-04-22] MEDS: SODIUM CHLORIDE 0.9% IV 1,000 ML 125 ML IV CONT (18:41)
[2022-04-22] MEDS: KETOROLAC 15 MG/ML VIAL (*BKC) IV PUSH ×2 (18:42→23:47)
[2022-04-22] MEDS: SENNA/DOCUSATE SODIUM TABLET 2 TAB PO (18:43)
[2022-04-22] MEDS: hydrALAZINE HCL 50 MG TABLET PO (18:43)
[2022-04-22] MEDS: ASPIRIN 325 MG ENTERIC TABLET PO (20:34)
[2022-04-22] MEDS: LORazepam (*CRX) 1 MG TABLET PO (22:04)
[2022-04-22] MEDS: oxyCODONE/ACETAMINOPHEN (*CRX) 5-325 MG TABLET 1 TABLET PO (22:52)
[2022-04-23] MEDS: ceFAZolin 2 GM/D5W 50 ML 2 GM/50 ML BAG IVPB ×2 (02:54→12:07)
[2022-04-23] MEDS: oxyCODONE/ACETAMINOPHEN (*CRX) 5-325 MG TABLET 1 TABLET PO ×2 (02:56→10:20)
[2022-04-23 04:42] VITALS: BP 121/76; PULSE 89; RESP 18; TEMP 36.1; O2SAT 98
[2022-04-23 05:51] LABS: Basophils Percent Auto 0.1 % (0.2-1.2); Hemoglobin 11.4 g/dL (14.0-18.0); Immature Granulocyte Absolute 0.09 K/mm3 (0.00-0.031); Immature Granulocyte Percent A 0.6 % (0-0.5); Lymphocytes Absolute Auto 0.78 K/mm3 (0.9-3.2); Lymphocytes Percent Auto 5.2 % (18.3-44.2); Mean Corpuscular HGB Conc 32.6 g/dl (32-36); Mean Corpuscular Hemoglobin 31.7 pg (26-34); Mean Corpuscular Volume 97.2 fl (80-100); Mean Platelet Volume 9.7 fl (7.4-10.4); Monocytes Absolute Auto 1.1 K/mm3 (0.1-0.6); Monocytes Percent Auto 7.3 % (2.6-8.5); Neutrophils Absolute Auto 13.1 K/mm3 (1.3-6.7); Neutrophils Percent Auto 86.8 % (45.5-73.1); Platelet Count Result 217 k/mm3 (150-375); Red Cell Distribution Width 13.1 % (11.5-14.5); White Blood Count 15.1 K/mm3 (4.5-10.0)
[2022-04-23 06:04] LABS: Anion Gap 7 mmol/L (8-16); Blood Urea Nitrogen 16 mg/dL (9-20); Calcium 8.2 mg/dL (8.4-10.2); Carbon Dioxide 26 mmol/L (22-30); Chloride 103 mmol/L (98-107); Estimated CRCL calculation 68 ml/min; Estimated Glomerular Filt Rate > 60; Glucose 178 mg/dL (65-110); Potassium 4.4 mmol/L (3.4-5.0); Sodium 136 mmol/L (137-145)
[2022-04-23] MEDS: KETOROLAC 15 MG/ML VIAL (*BKC) IV PUSH ×2 (06:21→12:07)
[2022-04-23] MEDS: PANTOPRAZOLE 40 MG TABLET PO (06:22)
[2022-04-23] MEDS: TAMSULOSIN HCL 0.4 MG CAPSULE BY MOUTH (09:17)
[2022-04-23] MEDS: SENNA/DOCUSATE SODIUM TABLET 2 TAB PO (09:17)
[2022-04-23] MEDS: ASPIRIN 325 MG ENTERIC TABLET PO (09:17)
[2022-04-23] MEDS: hydrALAZINE HCL 50 MG TABLET PO (09:17)
[2022-04-23] MEDS: ATORVASTATIN 20 MG TABLET BY MOUTH (09:17)
[2022-04-23] MEDS: polyethylene glycoL 3350 17 GM POWD.PACK PO (09:17)
--- NOTE | 2022-04-23 09:26 | P.PNAN_ITS ---
Anes - Prog Note Post-Op Date/Time: 04/23/22 09:26 Cardiovascular status: normal Respiratory status: normal Airway patency: baseline Mental status: baseline Post-Op hydration status: normal Vital Signs: Last Vital Signs Temp 97 F L 04/23/22 04:42 Pulse 89 04/23/22 04:42 Resp 18 04/23/22 04:42 BP 121/76 04/23/22 04:42 Pulse Ox 98 04/23/22 04:42 O2 Del Method Room Air 04/23/22 08:11 O2 Flow Rate 6 04/22/22 16:25 Pain Score (VAS): 4 I/O: Intake & Output 04/22/22 04/23/22 04/23/22 23:59 07:59 15:59 Intake Total 150 300 Output Total 425 400 Balance -275 -100 Laboratory Tests 04/23/22 05:31 04/23/22 05:31 04/23/22 04/23/22 05:31 05:31 WBC 15.1 H RBC 3.60 L Hgb 11.4 L Hct 35.0 L MCV 97.2 MCH 31.7 MCHC 32.6 RDW 13.1 Plt Count 217 MPV 9.7 Immature Gran % (Auto) 0.6 H Neut % (Auto) 86.8 H Lymph % (Auto) 5.2 L [place] % (Auto) 7.3 Eos % (Auto) 0.0 Baso % (Auto) 0.1 L Lymph # (Auto) 0.78 L [place] # (Auto) 1.1 H Eos # (Auto) 0.0 Baso # (Auto) 0.0 Abs Immat Gran (auto) 0.09 H Absolute Neuts (auto) 13.1 H Absolute Nucleated RBC 0.0 Nucleated RBC % 0.0 Sodium 136 L Potassium 4.4 Chloride 103 Carbon Dioxide 26 Anion Gap 7 L BUN 16 Creatinine 1.00 Estim Creat Clear Calc 68 Estimated GFR > 60 Glucose 178 H Calcium 8.2 L Post-procedural complaints: none Patient Feedback: Patient satisfied with anesthetic care.CONTINUES TO RECEIVE RELIEF WITH FNB TO OPERATIVE KNEE. PAIN 4 TO LEFT KNEE
[2022-04-23 11:27] VITALS: BP 133/78; PULSE 83; RESP 18; TEMP 36.6; O2SAT 98
[2022-04-23] MEDS: hydrALAZINE HCL 25 MG TABLET PO (12:07)
--- NOTE | 2022-04-23 16:30 | PM.PNORT ---
Progress Note: A&P Assessment and Plan (1) S/P total knee arthroplasty: Code(s): Z96.659 - Presence of unspecified artificial knee joint Status: Acute Assessment and Plan: POD 1 DOING WELL. OK TO DC HOME F/U IN 3 WEEKS. Subjective Subjective Date/Time Seen: 04/23/22 16:30 POD 1 DOING WELL. GOOD PROGRESS WITH PT. NO CALF PAIN Exam Extrem: Other: VSS AFEBRILE DRESSING DRY NV INTACT NEG DEVANTE SIGN CALF SOFT NON TENDER Objective Data Vital Signs Vital Signs: Vital Signs - 24 hr 04/22/22 16:40 04/22/22 16:55 04/22/22 17:10 Temperature 36.2 C L Pulse Rate 76 79 72 Respiratory Rate 16 16 14 Blood Pressure 129/86 143/82 H 129/80 Pulse Oximetry 99 99 96 Oxygen Delivery Room Air Room Air Room Air 04/22/22 17:45 04/22/22 18:00 04/22/22 18:30 Temperature 36.1 C L 36.2 C L 36.2 C L Pulse Rate 77 89 86 Respiratory Rate 18 20 20 Blood Pressure 127/77 121/59 L 123/62 Pulse Oximetry 100 98 100 Oxygen Delivery 04/22/22 20:07 04/22/22 22:28 04/22/22 23:55 Temperature 36.6 C 36.3 C L Pulse Rate 97 97 100 Respiratory Rate 18 18 18 Blood Pressure 126/80 134/77 Pulse Oximetry 99 99 96 Oxygen Delivery Room Air 04/23/22 04:42 04/23/22 07:30 04/23/22 08:11 Temperature 36.1 C L Pulse Rate 89 Respiratory Rate 18 Blood Pressure 121/76 Pulse Oximetry 98 Oxygen Delivery Room Air Room Air 04/23/22 09:30 04/23/22 11:27 Temperature 36.6 C Pulse Rate 83 Respiratory Rate 18 Blood Pressure 133/78 Pulse Oximetry 98 Oxygen Delivery Room Air Intake/Output Intake/Output: Intake & Output 04/20/22 04/21/22 04/22/22 04/23/22 23:59 23:59 23:59 23:59 Intake Total 300 300 Output Total 425 600 Balance -125 -300 Meds/Results Medications: Active Medications Generic Name Dose Route Start Last Admin Trade Name Freq PRN Reason Stop Dose Admin Acetaminophen 1,000 mg 04/22/22 17:18 Acetaminophen 500 Mg Tablet PO Q6H PRN Pain Rated 1-3 Aspirin 325 mg 04/22/22 21:00 04/23/22 09:17 Aspirin 325 Mg Enteric Tablet PO 325 mg Q12HR SCOTT Administration Atorvastatin Calcium 20 mg 04/23/22 09:00 04/23/22 09:17 Atorvastatin 20 Mg Tablet BY MOUTH 20 mg DAILY SCOTT Administration Diazepam 5 mg 04/22/22 17:18 Diazepam (*Crx) 5 Mg Tablet PO Q8H PRN Spasms Diphenhydramine HCl 25 mg 04/22/22 17:18 Diphenhydramine Hcl Inj 50 Mg/Ml Vial IV PUSH Q6H PRN Itching Hydralazine HCl 50 mg 04/22/22 17:30 04/23/22 09:17 Hydralazine Hcl 50 Mg Tablet PO 50 mg BID SCOTT Administration Hydralazine HCl 25 mg 04/23/22 12:00 04/23/22 12:07 Hydralazine Hcl 25 Mg Tablet PO 25 mg 1200 SCOTT Administration Ketorolac Tromethamine 15 mg 04/22/22 18:00 04/23/22 12:07 Ketorolac 15 Mg/Ml Vial (*Bkc) IV PUSH 04/23/22 18:01 15 mg Q6HR SCOTT Administration Lorazepam 1 mg 04/22/22 17:18 04/22/22 22:04 Lorazepam (*Crx) 1 Mg Tablet PO 1 mg BID PRN Administration anxiety Naloxone HCl 0.1 mg 04/22/22 17:18 Naloxone Hcl 0.4 Mg/Ml Vial IV PUSH Q2M PRN Opiate Reversal Ondansetron HCl 4 mg 04/22/22 17:18 Ondansetron Inj 4 Mg/2 Ml Vial IV PUSH Q4H PRN Nausea And Vomiting Oxycodone/Acetaminophen 1 tablet 04/22/22 17:18 04/23/22 10:20 Oxycodone/Acetaminophen (*Crx) 5-325 Mg Tablet PO 1 tablet Q4H PRN Administration Pain Rated 4-6 Oxycodone/Acetaminophen 2 tablet 04/22/22 17:18 Oxycodone/Acetaminophen (*Crx) 5-325 Mg Tablet PO Q6H PRN Pain Rated 7-10 Pantoprazole Sodium 40 mg 04/23/22 09:00 04/23/22 06:22 Pantoprazole 40 Mg Tablet PO 40 mg Q12HR SCOTT Administration Polyethylene Glycol 17 gm 04/23/22 09:00 04/23/22 09:17 Polyethylene Glycol 3350 17 Gm Powd.Pack PO 17 gm QAM SCOTT Administration Senna/Docusate Sodium 2 tab 04/22/22 17:18 04/23/22 09:17 Senna/Docusate Sodium Tablet PO 2 tab BID SCOTT A
--- NOTE | 2022-04-23 16:33 | PM.DS ---
DS: Admitting Diagnosis Discharge Date 04/23/22 Admitting Diagnosis LEFT KNEE PAIN, RIGHT KNEE STIFFNESS DS: Discharge Diagnosis Discharge Diagnosis (1) S/P total knee arthroplasty: Code(s): Z96.659 - Presence of unspecified artificial knee joint Status: Acute DS: Summary Hospital Course Reason for hospitalization: LEFT TKA, RIGHT KNEE FRED Hospital Course: PATIENT WAS ADMITTED S/P LEFT TOTAL KNEE ARTHROPLASTY AND RIGHT KNEE MANIPULATION FOR POSTOPERATIVE MEDICAL MANAGEMENT, PAIN CONTROL AND MOBILIZATION WITH PHYSICAL AND OCCUPATIONAL THERAPY. THE PATIENT PROGRESSED WELL WITH PT/OT. LABS AND VITALS REMAINED STABLE AND PAIN WELL CONTROLLED. THE PATIENT HAS BEEN CLEARED TO BE DISCHARGED HOME. FOLLOW UP APPOINTMENT SCHEDULED. DISCHARGE INSTRUCTIONS DISCUSSED AT LENGTH WITH THE PATIENT. MEDICATIONS REVIEWED. Status at Discharge Cognitive/behavioral status at discharge: STABLE Functional status at discharge: uses cane/walker Overall status at discharge: patient is not back to baseline Time Spent with Patient Time attestation: Total time spent providing and/or coordinating discharge services: DS: Data Data Completed and Pending Labs on day of discharge: Labs from last 24 hours 04/23/22 04/23/22 05:31 05:31 WBC 15.1 H RBC 3.60 L Hgb 11.4 L Hct 35.0 L MCV 97.2 MCH 31.7 MCHC 32.6 RDW 13.1 Plt Count 217 MPV 9.7 Immature Gran % (Auto) 0.6 H Neut % (Auto) 86.8 H Lymph % (Auto) 5.2 L [place] % (Auto) 7.3 Eos % (Auto) 0.0 Baso % (Auto) 0.1 L Lymph # (Auto) 0.78 L [place] # (Auto) 1.1 H Eos # (Auto) 0.0 Baso # (Auto) 0.0 Abs Immat Gran (auto) 0.09 H Absolute Neuts (auto) 13.1 H Absolute Nucleated RBC 0.0 Nucleated RBC % 0.0 Sodium 136 L Potassium 4.4 Chloride 103 Carbon Dioxide 26 Anion Gap 7 L BUN 16 Creatinine 1.00 Estim Creat Clear Calc 68 Estimated GFR > 60 Glucose 178 H Calcium 8.2 L Discharge Plan Discharge Patient Disposition: Home, Self-Care Discharge Instructions: Post Op Total Knee Replacement Instructions Dr. Ronnie Cassidy [phone] Your dressing will be changed prior to your discharge. You will be sent home with one additional dressing to be changed on post op day 7 by the home health RN. Your kirsty will be removed on the 14th day after surgery and steri-strips will be placed. Please practice good hand hygiene and do not touch your incision in order to prevent infection. You may shower with your dressing but do not submerge in a bath tub. Do not drive or operate machinery until you are released by Dr. Cassidy. Do not walk without a walker for any reason until you are released by Dr. Cassidy. Continue to use your ice machine. Please use a towel or pillow case to protect your skin before applying your ice machine. Do NOT place a pillow under your knee. You may use a pillow from the calf down if needed. This will prevent a flexion contracture postoperatively. You may begin use of your CPM machine at home if you have been given one pre-operatively. DO NOT USE WHILE YOU ARE SLEEPING. Your first post op appointment was sent to you via mail preoperatively. If you have any questions or are unable to make your appointment, please contact our office for scheduling questions. Your medications have been sent to your pharmacy. You have been sent home with pain medication. We have also sent you with a stool softener as narcotics can cause constipation. Please keep this in mind during your postoperative recovery. If you are not experiencing regular bowel movements, please contact our office for further instruction. Please contact our office with any questions/concerns regarding your knee at [phone]. Stand Alone Forms: General Discharge Instructions Follow-up/Referrals: Ronnie Cassidy MD [Physician] - 3 Weeks Discharge Medications: New oxycodone-acetaminophen [Percocet] 5-325 mg tablet 1 tablet PO
[2022-04-23] MEDS: oxyCODONE/ACETAMINOPHEN (*CRX) 5-325 MG TABLET 2 TABLET PO (17:53)
== END 2022-04-23 17:30 | disposition home or self-care (01) ==
LOC: ANHSURGERY 09:40 → ANH3MED 04-23 10:38
PROVIDERS: PCP Internal Medicine; Visit Provider Orthopaedic Surgery
PROC: (CPT 27447; principal; 2022-04-22 12:00)
DX: M17.12 Unilateral primary osteoarthritis, left knee (principal); M76.891 Other specified enthesopathies of right lower limb, excluding foot; M25.661 Stiffness of right knee, not elsewhere classified; G89.18 Other acute postprocedural pain; I10 Essential (primary) hypertension; E78.5 Hyperlipidemia, unspecified; N40.1 Benign prostatic hyperplasia with lower urinary tract symptoms; K21.9 Gastro-esophageal reflux disease without esophagitis; L40.9 Psoriasis, unspecified; F41.9 Anxiety disorder, unspecified; Z96.651 Presence of right artificial knee joint; Z87.891 Personal history of nicotine dependence
CPT/HCPCS: 27447; 27570; 64447; 36415; 73560; 80048; 81003; 85025; 86850; 86900; 86901; 87081; 97110; 97116; 97161; 97165; 97535; A9270; C1713; C1776; J0171; J0330; J0690; J1040; J1100; J1170; J1885; J2250; J2270; J2405; J2704; J2795; J3010; J7030; J7120

== ENCOUNTER 2022-06-17 01:58 | Day surgery (SDC) | payer MEDICARE, SELFPAY ==
[2022-06-13 09:14] VITALS: BMI 27.2
--- NOTE | 2022-06-13 09:21 | PC.NURSE ---
Report to the Outpatient Waiting Room, entrance under the green pavilion located off [facility], at time _0900 on date _06/17/22 . Planned Procedure Time: __1100 . Time changes happen often and if your time is changed the preop area will call you the afternoon before. - You and your visitor will be asked to self-screen and do not enter if you have any COVID symptoms. - Only one visitor is requested with a max of two and NO children visitors are allowed at this time. - The patient visitor may be requested to leave or wait in car when not with patient due to distancing restrictions. - A mask is optional within the hospital. Patients may have clear liquids (water, carbonated beverages, clear teas, apple juice) until 3 hours prior to surgery (0800 AM) with a maximum of 20 ounces. - No food from midnight until time of surgery - Infants may have breast milk until 4 hours before surgery, infant formula 6 hours prior to surgery. - Children will be allowed to drink immediately following surgery. If applicable, please bring a bottle or sippy cup to assist with drinking. Juice, water, soda, and popsicles are readily available. For infants on formula, please bring formula the day of surgery. Pacifiers are allowed. Take the following medications with a SIP of water the morning of surgery: _HYDRALAZINE, ALPRAZOLAM, BUSPIRONE, ESCITALOPRAM, & CELECOXIB, LORAZEPAM IF NEEDED __ Medications to discontinue per physician NONE Date to take last dose Please no make-up, nail armenian, hairspray, perfume, deodorant, or body powder the day of surgery. No jewelry (including any body piercings) or valuables the day of surgery, leave them at home. Please take a shower or bath the night before, or the morning of, surgery with an antibacterial soap. Wear comfortable, loose fitting clothing. Children are encouraged to wear pajamas. - Jewelry must be removed prior to entering the operating room. Rings and piercings that are not removed may be cut off. - The hospital will not accept responsibility for valuables. - Please leave all valuables, including medications, at home the day of surgery. If you are going home after surgery, a licensed cart driver must drive you home. - NO public transportation without another adult if you receive anesthesia. - We recommend that an adult stay with you for 24 hours following discharge. - We also recommend that you do not drive, make important decision, drink alcoholic beverages, or take any drugs that were not prescribed by your health care provider for at least 24 hours after your discharge time. For Pediatric surgeries, we recommend two adults accompany the child home. Follow any additional instructions given to you from your surgeon. If you or anyone in your household have experienced Covid symptoms in the past week, please notify your surgeon or the nurse liaison at the phone number below for possible testing. Telephone instructions given to ____PT and asked if any additional questions and then verbalized understanding. Patient advised to call surgeon office or pre surgery nurse liaison [phone] if any additional questions.
[2022-06-17] VITALS (7 sets, daily range): BP systolic 101–116; BP diastolic 55–77; PULSE 63–83; RESP 14–24; TEMP 36.3–36.7; O2SAT 97–100
[2022-06-17] MEDS: ACETAMINOPHEN 500 MG TABLET 1000 MG PO (09:30)
[2022-06-17] MEDS: CELECOXIB 200 MG CAPSULE PO (09:30)
[2022-06-17] MEDS: LACTATED RINGERS 1,000 ML 30 ML IV CONT (09:30)
--- NOTE | 2022-06-17 09:30 | WPDANESEPPF ---
Anes - Initial Pre Proc Eval Procedure: Operation Date: 06/17/22 10:00 Proposed Procedures p Left Knee Manipulation with Cortisone Injection - Ronnie Cassidy MD Date/Time: 06/17/22 09:30 Surgeon: Ronnie Cassidy MD Pre Op Diagnosis: frozen left knee, s/p total knee Patient Data Age: 71 Gender: M Height: 1.83 m Weight: 91.1 kg Allergies Allergy/AdvReac Type Severity Reaction Status Date / Time No Known Allergies Allergy Verified 06/13/22 09:08 Home Medications Medication Instructions Recorded Confirmed Type sildenafil 100 mg tablet See Rx Instructions .Route 10/22/21 06/13/22 Rx .COMPLEX #18 tabs omeprazole 40 mg capsule,delayed 40 mg PO DAILY #90 caps 11/22/21 06/13/22 Rx release atorvastatin 20 mg tablet See Rx Instructions .Route 12/20/21 06/13/22 Rx .COMPLEX #90 tabs tamsulosin 0.4 mg capsule See Rx Instructions .Route 01/06/22 06/13/22 Rx .COMPLEX #90 caps hydralazine 50 mg tablet 50 mg PO .COMPLEX #15 tabs 01/20/22 06/13/22 Rx lorazepam 1 mg tablet 1 mg PO BID PRN anxiety #180 tabs 02/25/22 06/13/22 Rx valsartan 320 1 tablet PO DAILY #20 tabs 04/24/22 06/13/22 Rx mg-hydrochlorothiazide 12.5 mg tablet (Diovan HCT) escitalopram oxalate 10 mg tablet 10 mg PO DAILY #30 tabs 05/29/22 06/13/22 Rx (Lexapro) celecoxib 200 mg capsule (Celebrex) 200 mg PO BID PRN pain #30 caps 06/02/22 06/13/22 Rx alprazolam 0.5 mg tablet (Xanax) 0.5 mg PO BID #60 tabs 06/12/22 06/13/22 Rx diazepam 5 mg tablet 5 mg PO BID PRN muscle spasm 06/12/22 06/13/22 History buspirone 5 mg tablet 5 mg PO BID #60 tabs 06/17/22 Rx Patient hx anesthesia problems: none Family hx anesthesia problems: none Results Review: All pre-operative results and documents have been reviewed as part of the pre-operative evaluation. [facility] Past Medical History Medical History Anxiety BPH with obstruction/lower urinary tract symptoms Chronic pain of both knees Essential hypertension Gastroesophageal reflux disease without esophagitis Hyperlipidemia Impaired glucose tolerance Psoriasis Screening for colon cancer Surgical History Surgical History S/P total knee arthroplasty RIGHT 03/11/2022 LEFT 04/22/2022 Family History Family History Mother Family history of multiple sclerosis Father Hypertension, Onset Age: 83 Family history of congestive heart failure, Onset Age: 83 Social History Social History Smoking packs per day: 1 Smoking cigarettes per day: 20.0 Years smoked: 20 Smoking pack-years: 20.00 Smoking status: Former smoker Tobacco type: cigarettes Second hand tobacco smoke exposure: No Smoking end date: 01/11/80 Additional smoking assessment comments: DENIES ANY FORM OF TOBACCO USE Alcohol intake: current Alcohol use details: STATES 2-3 DRINKS/MONTH Substance use: never Substance use type: does not use Lack of Transportation: No Lack of Food: Never True Current Housing: I Have Housing Concerned About Future Housing: No Difficulty Paying Gas/Electric Bills: No Difficulty Paying for Meds: No Currently Unemployed: No Education: High School Diploma/GED Difficulty w/ Childcare or Family Care: No Living arrangements: with family Additional living arrangements comments: Spiritual care concerns: No Anes - Eval Final PreProcedure Day of Procedure 06/17/22 09:30 Patient weight: overweight Heart: regular rate and rhythm Lungs: clear to auscultation Airway: Mallampati scale class II Neurological: alert and oriented Last oral intake: >/= 8 hours ASA classification: III Emergent: no Anesthetic plan: proceed Anesthesia type and monitoring: general GIVS and standard monitoring Results Review:
--- NOTE | 2022-06-17 10:08 | WPDHPUPDATE1 ---
History and Physical Update Update Date/Time: 06/17/22 10:08 History and Physical has been reviewed, including an updated exam of the patient. There are NO changes in the patient's condition. Risks, benefits, and alternatives have been discussed and questions answered. Patient agrees to proceed with procedure.
[2022-06-17] MEDS: ceFAZolin 2 GM/D5W 50 ML 2 GM/50 ML BAG IVPB (10:15)
[2022-06-17] MEDS: BUPIVACAINE HCL 0.5% PF 30 ML VIAL INFILTRATE (10:26)
[2022-06-17] MEDS: methylPREDNISolone ACETATE 80 MG/ML VIAL 160 MG IM (10:27)
[2022-06-17] MEDS: fentaNYL CITRATE INJ (*CRX) 100 MCG/2 ML VIAL 25 MCG IV PUSH (11:00)
--- NOTE | 2022-06-17 11:02 | W.PM.PROC2 ---
Procedure Note - Detailed Date of Procedure 06/17/22 Pre-op Diagnosis adhesive capsulitis left knee, s/p total knee Post-op Diagnosis Same Procedure Performed FRED, INJECTION LEFT TKA Surgeon Ronnie Cassidy MD Anesthesia General Description of Procedure THE PATIENT WAS TAKEN TO THE OPERATING ROOM AND PLACED UNDER GENERAL ANESTHESIA. ONCE HE WAS CHEMICALLY PARALYZED THE LEFT KNEE WAS MANIPULATED UNTIL ABOUT 115 DEG OF FLEXION AND FULL EXTENSION WERE ACHIEVED. NEXT THE LEFT KNEE WAS PREPPED AND DRAPED STERILELY. DEPO MEDROL 80 MG X 2 CC AND MARCAINE 0.5% 7 CC WERE INJECTED IN TO THE RIGHT KNEE JOINT. THE PATIENT WAS SENT TO THE RECOVERY ROOM ONCE GENERAL ANESTHESIA WAS REVERSED, IN STABLE CONDITION. Estimated Blood Loss 0 Complications No immediate complications Condition Stable
== END 2022-06-17 12:35 | disposition home or self-care (01) ==
PROVIDERS: PCP Internal Medicine; Visit Provider Orthopaedic Surgery
PROC: (CPT 27570; principal; 2022-06-17 10:00)
DX: M76.892 Other specified enthesopathies of left lower limb, excluding foot (principal); Z96.652 Presence of left artificial knee joint; I10 Essential (primary) hypertension; E78.5 Hyperlipidemia, unspecified; K21.9 Gastro-esophageal reflux disease without esophagitis; N40.1 Benign prostatic hyperplasia with lower urinary tract symptoms; N13.8 Other obstructive and reflux uropathy; L40.9 Psoriasis, unspecified; Z87.891 Personal history of nicotine dependence
CPT/HCPCS: 27570; A9270; J0330; J0690; J1040; J2250; J2704; J3010; J7120

== ENCOUNTER 2023-04-15 00:12 | Day surgery (SDC) | payer MEDICARE, SELFPAY ==
[2023-04-14 08:25] VITALS: BMI 26.4
[2023-04-15 11:20] VITALS: BP 118/84; PULSE 85; RESP 17; TEMP 36.5; O2SAT 98; BMI 26.2
[2023-04-15] MEDS: LACTATED RINGERS 1,000 ML 150 ML IV CONT (11:29)
--- NOTE | 2023-04-15 11:47 | WPDANESEPPF ---
Anes - Initial Pre Proc Eval Procedure: Operation Date: 04/15/23 12:30 Proposed Procedures p Screening Colonoscopy - Kvng Blanca MD Date/Time: 04/15/23 11:47 Surgeon: Kvng Blanca MD Pre Op Diagnosis: neoplasm screening Patient Data Age: 72 Gender: M Height: 1.87 m Weight: 91.5 kg Last Vital Signs Temp 97.7 F 04/15/23 11:20 Pulse 85 04/15/23 11:20 Resp 17 04/15/23 11:20 BP 118/84 04/15/23 11:20 Pulse Ox 98 04/15/23 11:20 O2 Del Method Room Air 04/15/23 11:20 Allergies Allergy/AdvReac Type Severity Reaction Status Date / Time No Known Allergies Allergy Verified 04/15/23 11:18 Home Medications Medication Instructions Recorded Confirmed Type sildenafil 100 mg tablet See Rx Instructions .Route 10/22/21 04/15/23 Rx .COMPLEX #18 tabs tamsulosin 0.4 mg capsule See Rx Instructions .Route 12/11/22 04/15/23 Rx .COMPLEX #90 caps atorvastatin 20 mg tablet See Rx Instructions .Route 01/07/23 04/15/23 Rx .COMPLEX #90 tabs buspirone 7.5 mg tablet 7.5 mg PO BID #180 tabs 01/07/23 04/15/23 Rx valsartan 320 1 tablet PO DAILY #90 tabs 01/07/23 04/15/23 Rx mg-hydrochlorothiazide 12.5 mg tablet (Diovan HCT) omeprazole 40 mg capsule,delayed 40 mg PO DAILY #90 caps 01/30/23 04/15/23 Rx release trazodone 50 mg tablet 50 mg PO QHS PRN insomnia #90 tabs 02/12/23 04/15/23 Rx escitalopram oxalate 20 mg tablet 20 mg PO DAILY #90 tabs 03/12/23 04/15/23 Rx (Lexapro) alprazolam 0.5 mg tablet 0.5 mg PO BID PRN anxiety #60 tabs 04/03/23 04/15/23 Rx celecoxib 200 mg capsule See Rx Instructions .Route 04/07/23 04/15/23 Rx .COMPLEX #60 caps Patient hx anesthesia problems: none Family hx anesthesia problems: none Results Review: All pre-operative results and documents have been reviewed as part of the pre-operative evaluation. REPLACED BY [facility] Past Medical History Medical History Anxiety BPH with obstruction/lower urinary tract symptoms Chronic pain of both knees Essential hypertension Gastroesophageal reflux disease without esophagitis Hyperlipidemia Impaired glucose tolerance Psoriasis Screening for colon cancer Surgical History Surgical History S/P total knee arthroplasty RIGHT 03/11/2022 LEFT 04/22/2022 Family History Family History Mother Family history of multiple sclerosis Father Hypertension, Onset Age: 83 Family history of congestive heart failure, Onset Age: 83 Social History Social History Smoking packs per day: 1 Smoking cigarettes per day: 20.0 Years smoked: 20 Smoking pack-years: 20.00 Smoking status: Former smoker Tobacco type: cigarettes Second hand tobacco smoke exposure: No Smoking end date: 01/11/80 Additional smoking assessment comments: DENIES ANY FORM OF TOBACCO USE Alcohol intake: current Alcohol use details: 2-3 drinks per month Substance use: never Substance use type: does not use Lack of Transportation: No Lack of Food: Never True Current Housing: I Have Housing Concerned About Future Housing: No Difficulty Paying Gas/Electric Bills: No Difficulty Paying for Meds: No Currently Unemployed: No Education: High School Diploma/GED Difficulty w/ Childcare or Family Care: No Living arrangements: with family Additional living arrangements comments: Spiritual care concerns: No Anes - Eval Final PreProcedure Day of Procedure 04/15/23 11:47 Patient weight: normal Heart: regular rate and rhythm Lungs: clear to auscultation Airway: Mallampati scale class II Neurological: alert and oriented Last oral intake: >/= 8 hours ASA classification: III Emergent: no Anesthetic plan: proceed Anesthesia type and monitoring:
--- NOTE | 2023-04-15 11:53 | PM.HPGS ---
History of Present Illness History of Present Illness Consent: Risks, benefits, and alternatives have been discussed and questions answered. Patient agrees to proceed with procedure. Chief complaint: neoplasm screening Narrative: Ranjan Baer is a 72 year old male here for screening colonoscopy, last one over 10 years ago Review of Systems Constitutional: Constitutional: Denies headache(s) and Denies weakness Eyes: Eyes: Denies blurry vision ENT: Reports Normal hearing present, Denies headache(s) and Denies neck pain Cardiovascular: Cardiovascular: Denies chest pain and Denies dyspnea Respiratory: Respiratory: Denies dyspnea Gastrointestinal: Gastrointestinal: Reports no additional gastrointestinal complaints Genitourinary: Genitourinary: Denies dysuria Musculoskeletal: Musculoskeletal: Denies neck pain Integumentary/Breasts: Skin/Breast: Denies dry skin Neurologic: Reports Normal hearing present, Denies headache(s) and Denies weakness Psychiatric: Psychiatric: Denies anxiety Endocrine: Endocrine: Denies change in body appearance Hematologic/Lymphatic: Hematologic/Lymphatic: Denies easy bleeding Allergic/Immunologic: Allergic/Immunologic: Denies urticaria PMFSH Past Medical History Medical History Anxiety BPH with obstruction/lower urinary tract symptoms Chronic pain of both knees Essential hypertension Gastroesophageal reflux disease without esophagitis Hyperlipidemia Impaired glucose tolerance Psoriasis Screening for colon cancer Surgical History Surgical History S/P total knee arthroplasty RIGHT 03/11/2022 LEFT 04/22/2022 Family History Family History Mother Family history of multiple sclerosis Father Hypertension, Onset Age: 83 Family history of congestive heart failure, Onset Age: 83 Social History Social History Smoking packs per day: 1 Smoking cigarettes per day: 20.0 Years smoked: 20 Smoking pack-years: 20.00 Smoking status: Former smoker Tobacco type: cigarettes Second hand tobacco smoke exposure: No Smoking end date: 01/11/80 Additional smoking assessment comments: DENIES ANY FORM OF TOBACCO USE Alcohol intake: current Alcohol use details: 2-3 drinks per month Substance use: never Substance use type: does not use Lack of Transportation: No Lack of Food: Never True Current Housing: I Have Housing Concerned About Future Housing: No Difficulty Paying Gas/Electric Bills: No Difficulty Paying for Meds: No Currently Unemployed: No Education: High School Diploma/GED Difficulty w/ Childcare or Family Care: No Living arrangements: with family Additional living arrangements comments: Spiritual care concerns: No Meds Home Medications and Allergies Home Medications Medication Instructions Recorded Confirmed Type sildenafil 100 mg tablet See Rx Instructions .Route 10/22/21 04/15/23 Rx .COMPLEX #18 tabs tamsulosin 0.4 mg capsule See Rx Instructions .Route 12/11/22 04/15/23 Rx .COMPLEX #90 caps atorvastatin 20 mg tablet See Rx Instructions .Route 01/07/23 04/15/23 Rx .COMPLEX #90 tabs buspirone 7.5 mg tablet 7.5 mg PO BID #180 tabs 01/07/23 04/15/23 Rx valsartan 320 1 tablet PO DAILY #90 tabs 01/07/23 04/15/23 Rx mg-hydrochlorothiazide 12.5 mg tablet (Diovan HCT) omeprazole 40 mg capsule,delayed 40 mg PO DAILY #90 caps 01/30/23 04/15/23 Rx release trazodone 50 mg tablet 50 mg PO QHS PRN insomnia #90 tabs 02/12/23 04/15/23 Rx escitalopram oxalate 20 mg tablet 20 mg PO DAILY #90 tabs 03/12/23 04/15/23 Rx (Lexapro) alprazolam 0.5 mg tablet 0.5 mg PO BID PRN anxiety #60 tabs 04/03/23 04/15/23 Rx celecoxib 200 mg capsule See Rx Instructions .Route 04/07/23
[2023-04-15 12:14] VITALS: BP 102/61; PULSE 79; RESP 19; O2SAT 92
[2023-04-15 12:24] VITALS: BP 114/76; PULSE 70; RESP 20; O2SAT 92
[2023-04-15 12:34] VITALS: BP 140/99; PULSE 87; RESP 20; O2SAT 97
== END 2023-04-15 12:58 | disposition home or self-care (01) ==
PROVIDERS: PCP Family Medicine; Visit Provider Internal Medicine Gastroenterology
PROC: 0DJD8ZZ Inspection of Lower Intestinal Tract, Via Natural or Artificial Opening Endoscopic (ICD-10-PCS; CPT 45378; principal; 2023-04-15 12:30)
DX: Z12.11 Encounter for screening for malignant neoplasm of colon (principal); D12.5 Benign neoplasm of sigmoid colon; D12.0 Benign neoplasm of cecum; K57.30 Diverticulosis of large intestine without perforation or abscess without bleeding; K64.8 Other hemorrhoids; I10 Essential (primary) hypertension; E78.5 Hyperlipidemia, unspecified; K21.9 Gastro-esophageal reflux disease without esophagitis; N40.1 Benign prostatic hyperplasia with lower urinary tract symptoms; L40.9 Psoriasis, unspecified; F41.9 Anxiety disorder, unspecified; Z87.891 Personal history of nicotine dependence
CPT/HCPCS: 45380; 45385; 88305; J2704; J7120

== ENCOUNTER 2024-03-18 11:34 | Outpatient (CLI) | payer MEDICARE, SELFPAY ==
--- NOTE | ~2024-03-18 | XR_ITS ---
EXAMINATION: XR elbow RT min 3V DATE: 03/18/2024 11:51 INDICATION: Other infective bursitis, unspecified elbow. TECHNIQUE: 4 views of right elbow were obtained. COMPARISON: None. FINDINGS: Alignment is normal. No fracture. There is mild elbow joint osteoarthritis. No elbow joint effusion. There is soft tissue swelling posterior to the olecranon, consistent with bursitis. IMPRESSION: 1. Olecranon bursitis. 2. Mild elbow joint osteoarthritis. Reviewed, dictated and finalized at location A.
== END 2024-03-18 11:35 | disposition home or self-care (01) ==
PROVIDERS: PCP Family Medicine; Visit Provider Nurse Practitioner Family
DX: M70.21 Olecranon bursitis, right elbow (principal); M19.021 Primary osteoarthritis, right elbow
CPT/HCPCS: 73080

== ENCOUNTER 2024-11-08 08:30 | Outpatient (CLI) | payer SELFPAY ==
--- NOTE | ~2024-11-08 | XR_ITS ---
XR abdomen/kub 1V Ordering provider: Misbah Jackson MD History: . K62.5 - Hemorrhage of anus and rectum . Comparison: None. FINDINGS: BOWEL: Nonobstructive bowel gas pattern. ORGANOMEGALY: None. SIGNIFICANT PATHOLOGIC CALCIFICATIONS: None. OTHER: No free air is seen under the diaphragm. Degenerative the spine. Bilateral hip osteoarthritic changes. Pubic symphysitis. IMPRESSION: NO ACUTE ABDOMINAL FINDINGS. Reviewed, dictated and finalized at location A.
== END 2024-11-08 08:31 | disposition home or self-care (01) ==
LOC: MICIMG 08:33
PROVIDERS: PCP Family Medicine; Visit Provider Family Medicine
DX: K62.5 Hemorrhage of anus and rectum (principal)
CPT/HCPCS: 74018